=== PATIENT | male | born 1965 | race Caucasian/White ===

== ENCOUNTER 2023-04-09 08:43 | Outpatient (OUT) | payer OTHER, SELFPAY ==
[2023-04-09 09:00] LABS: Basophils Percent Auto 0.4 % (0.2-2.0); Eosinophils Absolute Auto 0.2 10^3/uL (0.0-0.7); Eosinophils Percent Auto 3.2 % (0.9-7.0); Hematocrit 39.7 % (42.0-54.0); Hemoglobin 13.9 g/dL (14.0-18.0); Immature Granulocytes Abs Auto 0.01 10^3/uL (0.00-0.03); Immature Granulocytes Pct Auto 0.2 % (0.0-0.5); Mean Corpuscular Hemoglobin 31.2 pg (25.9-34.0); Mean Corpuscular Volume 89.2 fL (80.0-94.0); Monocytes Absolute Auto 0.5 10^3/uL (0.3-0.8); Monocytes Percent Auto 8.9 % (1.7-12.0); Neutrophils Absolute Auto 2.9 10^3/uL (1.4-6.5); Neutrophils Percent Auto 52.3 % (43.0-75.0); Platelet Count 215 10^3/uL (150-450); Red Blood Count 4.45 10^6/uL (4.70-6.10); Red Cell Distribution Width 12.5 % (11.0-15.0); White Blood Count 5.6 10^3/uL (4.0-11.0)
[2023-04-09 10:04] LABS: Alanine Aminotransferase 46 U/L (16-63); Albumin Globulin Ratio 1.1; Albumin Level 3.8 g/dL (3.4-5.0); Alkaline Phosphatase 56 U/L (46-116); Anion Gap 11.6; Aspartate Amino Transferase 20 U/L (15-37); BUN Creatinine Ratio 15.8; Bilirubin Total 0.6 mg/dL (0.2-1.0); Calcium 8.7 mg/dL (8.5-10.1); Carbon Dioxide 28.2 mmol/L (21.0-32.0); Chloride 105 mmol/L (98-107); Chol HDL Ratio 4.7; Cholesterol 182 mg/dL (<=200); Estimated GFR (African America >60 (>=60); Estimated GFR (Non-African Ame >60 (>=60); Globulin 3.4 g/dL; Glucose 109 mg/dL (74-106); HDL Cholesterol 39 mg/dL (40-60); Potassium 3.8 mmol/L (3.5-5.1); Sodium 141 mmol/L (136-145); Total Protein 7.2 g/dL (6.4-8.2); Triglycerides 159 mg/dL (<=150); VLDL CHOLESTEROL 31.8 mg/dL
[2023-04-09 10:25] LABS: Prostate Specific Antigen Scrn 0.46 ng/mL (<=4.00)
== END 2023-04-09 08:44 | disposition home or self-care (01) ==
PROVIDERS: PCP Internal Medicine; Visit Provider Internal Medicine
DX: Z00.00 Encounter for general adult medical examination without abnormal findings (principal); Z12.5 Encounter for screening for malignant neoplasm of prostate
CPT/HCPCS: 36415; 80053; 80061; 85025; G0103

== ENCOUNTER 2023-07-24 09:42 | Outpatient (OUT) | payer OTHER, SELFPAY ==
[2023-07-24 10:17] LABS: Basophils Percent Auto 0.4 % (0.2-2.0); Eosinophils Absolute Auto 0.1 10^3/uL (0.0-0.7); Eosinophils Percent Auto 1.9 % (0.9-7.0); Hematocrit 41.3 % (42.0-54.0); Hemoglobin 14.2 g/dL (14.0-18.0); Immature Granulocytes Abs Auto 0.03 10^3/uL (0.00-0.03); Immature Granulocytes Pct Auto 0.4 % (0.0-0.5); Lymphocytes Absolute Auto 2.2 10^3/uL (1.2-3.8); Lymphocytes Percent Auto 29.6 % (20.5-60.0); Mean Corpuscular HGB Conc 34.4 g/dL (29.9-35.2); Mean Corpuscular Hemoglobin 30.8 pg (25.9-34.0); Mean Corpuscular Volume 89.6 fL (80.0-94.0); Mean Platelet Volume 9.3 fL (9.5-13.5); Monocytes Absolute Auto 0.8 10^3/uL (0.3-0.8); Monocytes Percent Auto 10.6 % (1.7-12.0); Neutrophils Absolute Auto 4.2 10^3/uL (1.4-6.5); Neutrophils Percent Auto 57.1 % (43.0-75.0); Platelet Count 219 10^3/uL (150-450); Red Blood Count 4.61 10^6/uL (4.70-6.10); Red Cell Distribution Width 12.4 % (11.0-15.0); White Blood Count 7.4 10^3/uL (4.0-11.0)
[2023-07-24 10:33] LABS: Anion Gap 11.2; BUN Creatinine Ratio 16.5; Calcium 8.8 mg/dL (8.5-10.1); Carbon Dioxide 30.5 mmol/L (21.0-32.0); Chloride 102 mmol/L (98-107); Estimated GFR (African America >60 (>=60); Estimated GFR (Non-African Ame >60 (>=60); Glucose 101 mg/dL (74-106); Potassium 3.7 mmol/L (3.5-5.1); Sodium 140 mmol/L (136-145)
== END 2023-07-24 09:43 | disposition home or self-care (01) ==
LOC: LAB 09:44
PROVIDERS: PCP Internal Medicine; Visit Provider Internal Medicine
DX: D64.9 Anemia, unspecified (principal); I10 Essential (primary) hypertension
CPT/HCPCS: 36415; 80048; 85025

== ENCOUNTER 2024-02-13 11:01 | Emergency (ER) | payer OTHER, SELFPAY ==
[2024-02-13 11:05] VITALS: BP 161/85; PULSE 61; TEMP 36.9; O2SAT 95; BMI 31.7
--- OUTSIDE RECORDS SUMMARY | 2024-02-13 11:06 | XMS_ITS ---
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 Name Role Phone DEMETRI, DR WILSON Attending Unavailable BALL, DR WILSON Admitting Unavailable BALL, DR WILSON Primary Care Unavailable BALL, DR WILSON Consulting Unavailable BALL, DR WILSON Admitting Unavailable BALL, DR WILSON Primary Care Unavailable BALL, DR WILSON Consulting Unavailable BALL, DR WILSON Attending Unavailable Ball, Jomar Unavailable CLARENCE SHARMA Unavailable Allergies Allergy Classification Reported Allergen(s) Allergy Type Date of Onset Reaction(s) Facility (6 sources) patient allergy list reviewed by nurse or physicia Propensity to adverse reactions 5 Comment:Done [facility] Other Encounters Encounter Date Encounter Type Care Provider Facility Start: 01-21-2024 End: 01-21-2024 ambulatory CLARENCE SHARMA Not Available Start: 09-16-2023 End: 09-16-2023 ambulatory Jomar Mosquera Other [facility] Other Start: 09-16-2023 Office outpatient vi sit 15 minutes Jomar Demetri [facility] Start: 07-24-2023 End: 07-24-2023 ambulatory Jomar Demetri Other [facility] Other Start: 07-24-2023 Telephone encounter Jomar Mosquera [facility] Start: 07-23-2023 End: 07-23-2023 ambulatory Jomar Ball Other [facility] Other Start: 07-23-2023 Telephone encounter Jomar Mosquera [facility] Start: 06-24-2023 End: 06-24-2023 ambulatory Jomar Ball Other [facility] Other Start: 06-24-2023 Nursing evaluation o f patient and report Jomar Mosquera [facility] Start: 06-24-2023 Telephone encounter Jomar Mosquera [facility] Start: 06-23-2023 End: 06-23-2023 ambulatory Jomar Mosquera Other [facility] Other Start: 06-23-2023 Telephone encounter Jomar [facility] Start: 04-08-2023 End: 04-08-2023 ambulatory Jomar Mosquera Other [facility] Other Start: 04-08-2023 Encounter for genera l adult medical examination without abnormal findings Jomar Mosquera [facility] Start: 04-08-2023 Periodic preventive med est patient 40-64yrs Jomar Mosquera [facility] Start: 10-28-2022 End: 10-28-2022 ambulatory Jomar Mosquera Other [facility] Other Start: 10-28-2022 Office outpatient vi sit 15 minutes Jomar Mosquera [facility] Start: 04-01-2022 Encounter for genera l adult medical examination without abnormal findings DR JOMAR MOSQUERA [facility] Start: 03-27-2022 Adult health examination Jomar Mosquera Other [facility] Other Start: 03-27-2022 End: 03-28-[address] JOMAR MOSQUERA Facility:[facility] Start: 03-27-2022 End: 03-28-2022 Encounter for general adult medical examination without abnormal findings DR JOMAR MOSQUERA Facility:[facility] Start: 06-07-2021 End: 06-07-[address] JOMAR MOSQUERA Facility:[facility] Immunizations Immunization Date Immunization Notes Care Provider Fa cility 06-24-2023 influenza, injectabl e, quadrivalent, preservative free Jomar Mosquera Other [facility] Other 07-16-2022 influenza virus vaccine, split virus (incl. purified surface antigen) Jomar Mosquera Other [facility] Other 07-03-2021 influenza virus vaccine, split virus (incl. purified surface antigen) Jomar Mosquera Other [facility] Other 07-13-2020 influenza virus vaccine, split virus (incl. purified surface antigen) Jomar Mosquera Other [facility] Other 07-05-2019 influenza virus vaccine, split virus (incl. purified surface antigen) Jomar Mosquera Other [facility] Other 07-20-2017 influenza virus vaccine, split virus (incl. purified surface antigen) Jomar Mosquera Other [facility] Other Medications Current Medications Medication Drug Class(es) Dates Sig (Normalized) Sig (Original) ALPRAZolam 1 mg oral tablet (8 sources) Benzodiazepine Start: 08-26-2023 take 1 tablet by mouth twice daily ALPRAZolam 1 mg TAKE ONE TABLET BY MOUTH TWICE A DAY for 30 Aug, Active Start: 02-06-2023 take 1 tablet by wendy th twice daily ALPRAZolam 1 mg TAKE ONE TABLET BY MOUTH TWICE A DAY January, Active Start: 10-13-2022 take 1 tablet by [facility] twice daily ALPRAZolam 1 mg TAKE ONE TABLET BY MOUTH TWICE A DAY Sep, Active amLODIPine 2.5 mg oral tablet (5 sources) Dihydropyridine Calcium Channel Paula Start: 06-24-2023 take 1 tablet by mouth every twenty-four hours amLODIPine Besylate 2.5 MG 1 tablet Orally Once a day for 30 days Jun, Active amLODIPine 5 mg / hydroCHLOROthiazide 12.5 mg / olmesartan medoxomil 40 mg oral tablet (1 source) Thiazide Diuretic, Dihydropyridine Calcium Channel Paula, Angiotensin 2 Receptor Paula Start: 06-23-2023 take 1 tablet by mouth every twenty-four hours Olmesartan-amLO DIPine-HCTZ 40-5-12.5 MG 1 tablet Orally Once a day for 30 days replaces losartan Jun, Active azithromycin 250 mg oral tablet (1 source) Macrolide Antimicrobial Start: 09-16-2023 Azithromycin 250 MG as directed Orally daily for 5 days Aug, Active carvedilol 6.25 mg oral tablet (8 sources) alpha-Adrenergic Paula, beta-Adrenergic Paula take 1 tablet by mouth twice daily Carvedilol 6.25 mg TAKE 1 (ONE) TABLET BY MOUTH TWO TIMES DAILY for 30 Active hydroCHLOROthiazide 12.5 mg / olmesartan medoxomil 20 mg oral tablet (5 sources) Thiazide Diuretic, Angiotensin 2 Receptor Paula Start: 06-24-2023 take 1 tablet by mouth every twenty-four hours Olmesartan Medoxomil-HCTZ 20-12.5 MG 1 tablet Orally Once a day for 30 days Jun, Active losartan potassium 100 mg oral tablet (2 sources) Angiotensin 2 Receptor Paula take 1 tablet by mouth every twenty-four hours Losartan Potassium 100 MG 1 tablet Orally Once a day Active Completed/Discontinued Medications Medication Drug Class(es) Dates Sig (Normalized) Sig (Original) tiZANidine 4 mg oral tablet (8 sources) Central alpha-2 Adrenergic Agonist take 1 tablet by mouth every eight hours tiZANidine HCl 4 MG 1 tablet as needed Orally Three times a day Not-Taking/PRN Payers Date Payer Category Payer Unknown [id number] 2.16.84 [id number] 1965 Unknown [id number] 2.16.84 [id number] 1965 Unknown [id number] 2.16.84 [id number] 1957 Unknown [id number] Problems Active Problems Problem Classification Problem Date Documented Da te Episodic/Chronic Acute bronchitis (7 sources) Acute bronchitis; Translations: [Acute bronchitis, unspecified] Onset: 12-25-2014 Episodic Anxiety disorders (16 sources) Generalized anxiety disorder; Translations: [Generalized anxiety disorder] Chronic Deficiency and other anemia (1 source) Anemia, unspecified Episodic Disorders of lipid metabolism (14 sources) Hypercholesterolemi a; Translations: [Pure hypercholesterolemi a, unspecified] Chronic Essential hypertension (20 sources) Essential hypertension; Translations: [Essential (primary) hypertension] Chronic Immunizations and screening for infectious disease (12 sources) Contact with and (suspected) exposure to other viral communicable diseases; Translations: [Vaccination given] Episodic Influenza (14 sources) Upper respiratory tract infection due to Influenza; Translations: [Influenza due to unidentified influenza virus with other respiratory manifestations] Episodic Other nutritional; endocrine; and metabolic disorders (17 sources) Body mass index 30+ - obesity; Translations: [Body mass index (BMI) 34.0-34.9, adult] Onset: 08-24-2017 Chronic Other nutritional; endocrine; and metabolic disorders (7 sources) Obesity caused by energy imbalance; Translations: [Other obesity due to excess calories] Chronic Other nutritional; endocrine; and metabolic disorders (1 source) Other obesity due to excess calories Chronic Other nutritional; endocrine; and metabolic disorders (1 source) Body mass index (BMI) 34.0-34.9, adult Chronic Other nutritional; endocrine; and metabolic disorders (5 sources) Morbid obesity; Translations: [Morbid (severe) obesity due to excess calories] Onset: 08-24-2017 Chronic Other nutritional; endocrine; and metabolic disorders (6 sources) Obesity; Translations: [Obesity, unspecified] Chronic Other nutritional; endocrine; and metabolic disorders (1 source) Morbid (severe) obesity due to excess calories; Translations: [Morbid (severe) obesity due to excess calories] Onset: 08-24-2017 Chronic Other upper respiratory infections (20 sources) Acute maxillary sinusitis; Translations: [Acute maxillary sinusitis, unspecified] Onset: 08-24-2017 Episodic Residual codes; unclassified (19 sources) Obstructive sleep apnea syndrome; Translations: [Obstructive sleep apnea (adult) (pediatric)] Onset: 08-24-2017 Chronic Residual codes; unclassified (3 sources) Obstructive sleep apnea (adult) (pediatric); Translations: [Obstructive sleep apnea (adult) (pediatric)] Chronic Screening and history of mental health and substance abuse codes (1 source) Encounter for screening for depression; Translations: [Encounter for screening for depression] Episodic Spondylosis; intervertebral disc disorders; other back problems (9 sources) Lumbar spondylosis; Translations: [Spondylosis without myelopathy or radiculopathy, lumbar region] Chronic Spondylosis; intervertebral disc disorders; other back problems (13 sources) Sciatica; Translations: [Lumbago with sciatica, unspecified side] Episodic Unclassified (3 sources) CONTACT W/AND (SUSP) EXPOS COVID-19; Translations: [CONTACT W/AND (SUSP) EXPOS COVID-19] Onset: 06-24-2021 Unclassified (1 source) Low back pain, unspecified; Translations: [Low back pain, unspecified] Past or Other Problems Problem Classification Problem Date Documented Da te Episodic/Chronic Bacterial infection; unspecified site (6 sources) Bacterial infectious disease; Translations: [Bacterial infection, unspecified, in conditions classified elsewhere and of unspecified site] Onset: 08-24-2017 Episodic Cardiac dysrhythmias (6 sources) Palpitations; Translations: [Palpitations] Onset: 02-13-2015 Episodic Neoplasms of unspecified nature or uncertain behavior (6 sources) Neoplasm of uncertain behavior of skin; Translations: [Neoplasm of uncertain behavior of skin] Onset: 03-29-2019 Episodic Other circulatory disease (6 sources) Elevated blood-pressure reading without diagnosis of hypertension; Translations: [Elevated blood-pressure reading, without diagnosis of hypertension] Resolved: 12-13-2020 Episodic Other screening for suspected conditions (not mental disorders or infectious disease) (3 sources) Encounter for screening for malignant neoplasm of prostate; Translations: [Encounter for screening for malignant neoplasm of colon] Onset: 03-29-2019 Episodic Other upper respiratory infections (6 sources) Chronic sinusitis; Translations: [Chronic sinusitis, unspecified] Resolved: 03-25-2022 Chronic Residual codes; unclassified (6 sources) Insomnia; Translations: [Insomnia, unspecified] Onset: 02-13-2015 Episodic Unclassified (1 source) CONTACT W/AND (SUSP) EXPOS COVID-19; Translations: [CONTACT W/AND (SUSP) EXPOS COVID-19] Onset: 06-07-2021 Unclassified (1 source) Body mass index 36.0-36.9, adult; Translations: [Body mass index 36.0-36.9, adult] Onset: 08-24-2017 Unclassified (1 source) Counseling for marital and partner problems, unspecified; Translations: [Counseling for marital and partner problems, unspecified] Onset: 07-25-2016 Unclassified (1 source) Routine general medical examination at health care facility; Translations: [Routine general medical examination at health care facility] Onset: 12-31-2017 Unclassified (1 source) Body mass index 31.0-31.9, adult; Translations: [Body mass index 31.0-31.9, adult] Onset: 08-24-2017 Viral infection (6 sources) Disease caused by 2019-nCoV; Translations: [COVID-19] Resolved: 03-25-2022 Procedures Date Procedure Procedure Detail Performing Clinician Start: 03-27-[address] BRIGHT IN [facility] Comment on above: Performed By: #### P [facility] #### [facility] [address] [place] [address] Dr. Marilee Farnsworth Start: 03-29-2019 Screening for malign ant neoplasm of colon Jomar Mosquera Other Start: 12-31-2017 General examination of patient Jomar Mosquera Other Start: 07-25-2016 Marital counseling Kristal Mosquera Other Depression screening Antolin Mosquera Other Results Test Name Value Interpretation Reference Range Facility CBC AUTO DIFFon 03-27-2022 BASO # 0.0 103/ul Normal 0.0-0.1 [facility] Comment on above: Performed By: #### C BC #### [facility] [address] [place] [address] Dr. Marilee Farnsworth Basophils/100 WBC (Bld) 0.6 % Normal 0.2-2.0 [facility] Comment on above: Performed By: #### C BC #### [facility] [address] [place] [address] Dr. Marilee Farnsworth EO # 0.2 103/ul Normal 0.0-0.7 [facility] Comment on above: Performed By: #### C BC #### [facility] [address] [place] [address] Dr. Marilee Farnsworth Eosinophils/100 WBC (Bld) 2.5 % Normal 0.9-7.0 [facility] Comment on above: Performed By: #### C BC #### [facility] [address] [place] [address] Dr. Marilee Farnsworth Erythrocyte distribution width (RBC) [Ratio] 12.5 % Normal 11.0-15.0 [facility] Comment on above: Performed By: #### C BC #### [facility] [address] [place] [address] Dr. Marilee Farnsworth Hematocrit (Bld) [Volume fraction] 41.5 % Critically low 42.0-54.0 [facility] Comment on above: Performed By: #### C BC #### [facility] [address] [place] [address] Dr. Marilee Farnsworth Hemoglobin (Bld) [Mass/Vol] 14.3 g/dL Normal 14.0-18.0 [facility] Comment on above: Performed By: #### C BC #### [facility] [address] [place] [address] Dr. Marilee Farnsworth IG # 0.04 10e3/ul Critically high 0.00-0.03 [facility] Comment on above: Performed By: #### C BC #### [facility] [address] [place] [address] Dr. Marilee Farnsworth IG % 0.6 % Critically high 0.0-0.5 [facility] Comment on above: Performed By: #### C BC #### [facility] [address] [place] [address] Dr. Marilee Farnsworth LYMPH # 1.8 103/ul Normal 1.2-3.8 [facility] Comment on above: Performed By: #### C BC #### [facility] [address] [place] [address] Dr. Marilee Farnsworth Lymphocytes/100 WBC (Bld) 24.6 % Normal 20.5-60.0 [facility] Comment on above: Performed By: #### C BC #### [facility] [address] [place] [address] Dr. Marilee Farnsworth MANUAL DIFF REQ NO Normal [facility] Comment on above: Performed By: #### C BC #### [facility] [address] [place] [address] Dr. Marilee Farnsworth MCH (RBC) [Entitic mass] 31.1 pg Normal 25.9-34.0 [facility] Comment on above: Performed By: #### C BC #### [facility] [address] [place] [address] Dr. Marilee Farnsworth MCHC (RBC) [Mass/Vol] 34.5 g/dL Normal 29.9-35.2 [facility] Comment on above: Performed By: #### C BC #### [facility] [address] [address] [address] Marilee Farnsworth MCV (RBC) [Entitic vol] 90.2 fL Normal 80.0-94.0 [facility] Comment on above: Performed By: #### C BC #### [facility] [address] [address] [address] Marilee Farnsworth MONO # 0.6 103/ul Normal 0.3-0.8 [facility] Comment on above: Performed By: #### C BC #### [facility] [address] [place] [address] Dr. Marilee Farnsworth Monocytes/100 WBC (Bld) 8.7 % Normal 1.7-12.0 [facility] Comment on above: Performed By: #### C BC #### [facility] [address] [place] [address] Dr. Marilee Farnsworth NEUT # 4.5 103/ul Normal 1.4-6.5 [facility] Comment on above: Performed By: #### C BC #### [facility] [address] [place] [address] Dr. Marilee Farnsworth Neutrophils/100 WBC (Bld) 63.0 % Normal 43.0-75.0 [facility] Comment on above: Performed By: #### C BC #### [facility] [address] [address] [address] Marilee Farnsworth Platelet mean volume (Bld) [Entitic vol] 9.3 fL Critically low 9.5-13.5 [facility] Comment on above: Performed By: #### C BC #### [facility] [address] [place] [address] Dr. Marilee Farnsworth PLT 225 103/ul Normal 150-450 [facility] Comment on above: Performed By: #### C BC #### [facility] [address] [place] [address] Dr. Marilee Farnsworth RBC 4.60 106/ul Critically low 4.70-6.10 [facility] Comment on above: Performed By: #### C BC #### [facility] [address] [address] [address] Marilee Farnsworth WBC 7.2 103/ul Normal 4.0-11.0 [facility] Comment on above: Performed By: #### C BC #### [facility] [address] [address] [address] Marilee Farnsworth LIPID PROFILEon 03-27-2022 CHOL-HDL RATIO NORM SEE BELOW Normal [facility] Comment on above: Result Comment: 3.3 - 4.4 LOW RISK 4.4 - 7.1 AVERAGE RISK 7.1 - 11.0 MODERATE RISK >11.0 HIGH RISK Performed By: #### T SH, CMP, LIPID #### [facility] [address] [address] [address] Marilee Farnsworth Cholesterol [Mass/Vol] 196 mg/dL Normal <=200 [facility] Comment on above: Performed By: #### T SH, CMP, LIPID #### [facility] [address] [address] [address] Marilee Farnsworth Cholesterol in HDL [Mass/Vol] 42 mg/dL Normal 40-60 [facility] Comment on above: Performed By: #### T SH, CMP, LIPID #### [facility] [address] [place] [address] Dr. Marilee Farnsworth Cholesterol in LDL [Mass/Vol] 110.0 mg/dL Normal [facility] Comment on above: Performed By: #### T SH, CMP, LIPID #### [facility] [address] [address] [address] Marilee Farnsworth Cholesterol.total/ Cholesterol in HDL [Mass ratio] 4.7 {ratio} Normal [facility] Comment on above: Performed By: #### T SH, CMP, LIPID #### [facility] [address] [place] [address] Dr. Marilee Farnsworth HDL NORMAL > or = 60 mg/dl - LOW CARDIOVASCULAR RISK <40 mg/dl - HIGH CARDIOVASCULAR RISK Normal [facility] Comment on above: Performed By: #### T SH, CMP, LIPID #### [facility] [address] [address] [address] Marilee Farnsworth LDL CALC NORMAL SEE BELOW Normal [facility] Comment on above: Result Comment: <100 mg/dl OPTIMAL 100 - 129 mg/dl NEAR OR ABOVE OPTIMAL 130 - 159 mg/dl BORDERLINE HIGH 160 - 189 mg/dl HIGH >190 mg/dl VERY HIGH Performed By: #### T SH, CMP, LIPID #### [facility] [address] [address] [address] Marilee Farnsworth Triglyceride [Mass/Vol] 220 mg/dL Critically high <=150 [facility] Comment on above: Performed By: #### T SH, CMP, LIPID #### [facility] [address] [address] [address] Marilee Farnsworth VLDL CALC 44.0 mg/dL Normal [facility] Comment on above: Performed By: #### T MAX CMP, LIPID #### [facility] [address] [address] [address] Marilee Farnsworth PROF 14(COMP METB)on 022 Albumin [Mass/Vol] 3.8 g/dL Normal 3.4-5.0 [facility] Comment on above: Performed By: #### T MAX CMP, LIPID #### [facility] [address] [place] [address] Dr. Marilee Farnsworth Albumin/Globulin [Mass ratio] 1.1 {ratio} Normal [facility] Comment on above: Performed By: #### T SH, CMP, LIPID #### [facility] [address] [place] [address] Dr. Marilee Farnsworth ALP [Catalytic activity/Vol] 49 U/L Normal 46-116 [facility] Comment on above: Performed By: #### T SH, CMP, LIPID #### [facility] [address] [place] [address] Dr. Marilee Farnsworth ALT [Catalytic activity/Vol] 53 U/L Normal 16-63 [facility] Comment on above: Performed By: #### T SH, CMP, LIPID #### [facility] [address] [address] [address] Marilee Farnsworth Anion gap [Moles/Vol] 10.0 mmol/L Normal [facility] Comment on above: Performed By: #### T SH, CMP, LIPID #### [facility] [address] [place] [address] Dr. Marilee Farnsworth AST [Catalytic activity/Vol] 23 U/L Normal 15-37 [facility] Comment on above: Performed By: #### T SH, CMP, LIPID #### [facility] [address] [place] [address] Dr. Marilee Farnsworth Bilirubin [Mass/Vol] 0.7 mg/dL Normal 0.2-1.0 [facility] Comment on above: Performed By: #### T SH, CMP, LIPID #### [facility] [address] [place] [address] Dr. Marilee Farnsworth Calcium [Mass/Vol] 9.1 mg/dL Normal 8.5-10.1 [facility] Comment on above: Performed By: #### T SH, CMP, LIPID #### [facility] [address] [place] [address] Dr. Marilee Farnsworth Chloride [Moles/Vol] 105 mmol/L Normal 98-107 [facility] Comment on above: Performed By: #### T SH, CMP, LIPID #### [facility] [address] [place] [address] Dr. Marilee Farnsworth CO2 [Moles/Vol] 30.7 mmol/L Normal 21.0-32.0 [facility] Comment on above: Performed By: #### T SH, CMP, LIPID #### [facility] [address] [place] [address] Dr. Marilee Farnsworth Creatinine [Mass/Vol] 1.07 mg/dL Normal 0.70-1.30 [facility] Comment on above: Performed By: #### T SH, CMP, LIPID #### [facility] [address] [place] [address] Dr. Marilee Farnsworth EGFR-AF MONTSERRATIAN >60 Normal >=60 [facility] Comment on above: Performed By: #### T SH, CMP, LIPID #### [facility] [address] [address] [address] Marilee Farnsworth EGFR-NON AF MONTSERRATIAN >60 Normal >=60 [facility] Comment on above: Performed By: #### T SH, CMP, LIPID #### [facility] [address] [address] [address] Marilee Farnsworth Globulin (S) [Mass/Vol] 3.4 g/dL Normal [facility] Comment on above: Performed By: #### T SH, CMP, LIPID #### [facility] [address] [address] [address] Marilee Farnsworth Glucose [Mass/Vol] 105 mg/dL Normal 74-106 [facility] Comment on above: Performed By: #### T MAX, CMP, LIPID #### [facility] [address] [place] [address] Dr. Marilee Farnsworth Potassium [Moles/Vol] 4.7 mmol/L Normal 3.5-5.1 [facility] Comment on above: Performed By: #### T MAX, CMP, LIPID #### [facility] [address] [place] [address] Dr. Marilee Farnsworth Protein [Mass/Vol] 7.2 g/dL Normal 6.4-8.2 [facility] Comment on above: Performed By: #### T MAX, CMP, LIPID #### [facility] [address] [place] [address] Dr. Marilee Farnsworth Sodium [Moles/Vol] 141 mmol/L Normal 136-145 [facility] Comment on above: Performed By: #### T SH, CMP, LIPID #### [facility] [address] [address] [address] Marilee Farnsworth Urea nitrogen [Mass/Vol] 15.0 mg/dL Normal 7.0-18.0 [facility] Comment on above: Performed By: #### T SH, CMP, LIPID #### [facility] [address] [place] [address] Dr. Marilee Farnsworth Urea nitrogen/Creatinin e [Mass ratio] 14.0 mg/mg Normal [facility] Comment on above: Performed By: #### T SH, CMP, LIPID #### [facility] [address] [place], [place] [address] Dr. Marilee Farnsworth TSHon 03-27-2022 TSH 2.606 uIU/mL Normal 0.358-3.740 [facility] Comment on above: Performed By: #### T SH, CMP, LIPID #### [facility] [id number] Marilee Farnsworth Covid-19 PCR (CVDTB)on 05-22 SARS-CoV-2 (COVID-19) RNA NEIL+probe Ql (Unsp spec) Detected Critically abnormal NOT DETECTED [facility] Comment on above: Result Comment: This test is not yet approved or cleared by the [place] FDA. When there are no FDA-approved or cleared tests available, and other criteria are met, FDA can make tests available under an emergency access mechanism called an Emergency Use Authorization (EUA). The EUA for this test is supported by the Senior Consultant of Health and Human Service's (HHS's) declaration that circumstances exist to justify the emergency use of in vitro diagnostics for the detection and/or diagnosis of the virus that causes COVID-19. This EUA will remain in effect (meaning this test can be used) for the duration of the COVID-19 declaration justifying emergency of IVDs, unless it is terminated or revoked by FDA (after which the test may no longer be used). Performed By: #### C VDTBH #### [facility] [address] [address] [address] Marilee Farnsworth Social History Date Type Detail Facility Unknown if ever smoked [facility] Other Sex Assigned At Sex Assigned At Bir th [facility] Other Vital Signs Date Time Vital Sign Value Performing Clinician Facility 04-08-2023 14:30-0400 Body height 180.34 cm Jomar Mosquera Other [facility] Other 04-08-2023 14:30-0400 Body mass index (BMI) [Ratio] 34.11 kg/m2 Jomar Mosquera Other [facility] Other 04-08-2023 14:30-0400 Body weight 110.95 kg Jomar Ball Other [facility] Other 04-08-2023 14:30-0400 Diastolic blood pressure 93 mm[Hg] Jomar Ball Other [facility] Other 04-08-2023 14:30-0400 Respiratory rate 12 /min Jomar Ball Other [facility] Other 04-08-2023 14:30-0400 Systolic blood pressure 163 mm[Hg] Jomar Ball Other [facility] Other 10-28-2022 16:30-0500 Body height 180.34 cm Jomar Ball Other [facility] Other 10-28-2022 16:30-0500 Body mass index (BMI) [Ratio] 35.23 kg/m2 Jomar Ball Other [facility] Other 10-28-2022 16:30-0500 Body weight 114.58 kg Jomar Ball Other [facility] Other 10-28-2022 16:30-0500 Diastolic blood pressure 82 mm[Hg] Jomar Ball Other [facility] Other 10-28-2022 16:30-0500 Respiratory rate 12 /min Jomar Ball Other [facility] Other 10-28-2022 16:30-0500 Systolic blood pressure 122 mm[Hg] Jomar Ball Other [facility] Other Evaluation note 09-16-2023 Note Date & Type Note Facility 09-16-2023 Evaluation note Encounter Date Diagnosis Assessment Notes Aug, Acute bronchitis due to other specified organisms (ICD-10 - J20.8) Instructed to use Robitussin or Mucinex for cough, saline or Flonase NS for congestion, Tylenol for pain and fever. Aug, Primary hypertension (ICD-10 - I10) Aviod decongestants as they would aggravate his underlying HTN [facility] Other Evaluation note 07-23-2023 Note Date & Type Note Facility 07-23-2023 Evaluation note Encounter Date Diagnosis Assessment Notes Jul, Essential hypertension (ICD-10 - I10) Jul, Anemia, unspecified type (ICD-10 - D64.9) [facility] Other Evaluation note 06-24-2023 Note Date & Type Note Facility 06-24-2023 Evaluation note Encounter Date Diagnosis Assessment Notes Jun, Primary hypertension (ICD-10 - I10) [facility] Other Evaluation note 06-23-2023 Note Date & Type Note Facility 06-23-2023 Evaluation note Encounter Date Diagnosis Assessment Notes Jun, Primary hypertension (ICD-10 - I10) [facility] Other Evaluation note 04-08-2023 Note Date & Type Note Facility 04-08-2023 Evaluation note Encounter Date Diagnosis Assessment Notes Mar, Essential hypertension (ICD-10 - I10) This patient is instructed to consume a healthy, low-fat, low-salt diet. They are also encouraged to continue exercise to achieve/maintai n a normal BMI. Mar, Wellness examination (ICD-10 - Z00.00) Healthy diet and exercise. Reviewed age-appropriate preventive testing recommended. Mar, Obstructive sleep apnea (ICD-10 - G47.33) This patient is aware of the benefits associated with ANTONIO: With continued use, the patient reduces the risk for ME, CVA, HTN, cardiac dysrhythmias and sudden cardiac deaths.The patient is also aware of the association between ANTONIO and morning headaches, daytime somnolence, fatigue and obesity, which also has been improved with continued use.The patient is compliant with treatment, wearing the equipment every night for greater than 4 hours.The patient is instructed to continue use of the CPAP for ANTONIO treatment. Mar, JOBY (generalized anxiety disorder) (ICD-10 - F41.1) Healthy diet, exercise and keep active No change in medical therapy Mar, Other obesity due to excess calories (ICD-10 - E66.09) This patient has been instructed on a low-fat, high-fiber diet. They are instructed to reduce calories, portion sizes and snacks. It is recommended that they exercise for 30 minutes, 3-5 times weekly. Mar, Body mass index [BMI] 34.0-34.9, adult (ICD-10 - Z68.34) Mar, Screening PSA (prostate specific antigen) (ICD-10 - Z12.5) Yearly PSA and GERSON Mar, Other The patient is instructed to avoid bending, twisting or lifting. They are to use intermittent heat and ice as needed. They may schedule a massage or gentle manipulation. They may safely use Tylenol as needed. [facility] Other Evaluation note 10-28-2022 Note Date & Type Note Facility 10-28-2022 Evaluation note Encounter Date Diagnosis Assessment Notes Oct, Essential hypertension (ICD-10 - I10) This patient is instructed to consume a healthy, low-fat, low-salt diet. They are also encouraged to continue exercise to achieve/maintai n a normal BMI. Oct, Obstructive sleep apnea (ICD-10 - G47.33) This patient is aware of the benefits associated with ANTONIO: With continued use, the patient reduces the risk for ME, CVA, HTN, cardiac dysrhythmias and sudden cardiac deaths.The patient is also aware of the association between ANTONIO and morning headaches, daytime somnolence, fatigue and obesity, which also has been improved with continued use.The patient is compliant with treatment, wearing the equipment every night for greater than 4 hours.The patient is instructed to continue use of the CPAP for ANTONIO treatment. Oct, JOBY (generalized anxiety disorder) (ICD-10 - F41.1) Healthy diet, exercise and keep active. Oct, Lumbar spondylosis (ICD-10 - M47.816) The patient is instructed to avoid bending, twisting or lifting. They are to use intermittent heat and ice as needed. They may schedule a massage or gentle manipulation. They may safely use Tylenol as needed. [facility] Other Evaluation note Note Date & Type Note Facility Evaluation note No Information [facility] Other History general Narrative - Reported Note Date & Type Note Facility History general Narrative - Reported Type Medical History Hypercholesterolemia Medical History Obstructive sleep apnea Medical History Essential hypertension Medical History JOBY (generalized anxiety disorde r) Medical History Low back pain with radiation Medical History Acute non-recurrent maxillary si nusitis Medical History Influenza with respiratory sympt oms Surgical History APPENDECTOMY 2014 Hospitalization History SEE SURGICAL HX [facility] Other Summary Purpose Family History No Family History Records FoundNo Family History Records Found Advance Directives No Advanced Directives Records FoundNo Advanced Directives Records Found Additional Source Comments (unrecognized sect ion and content) No Status Records FoundNo Status Records Found INFORMATION SOURCE (unrecogn ized section and content) DATE CREATED AUTHOR 04/25/2022 [facility] DATE CREATED AUTHOR 'S ORGANIZ ATION 01/23/2024 [facility] EPIC REASON FOR VISIT (unrecogniz ed section and content) 6 month Follow upwellnessEle vated BPFLU ShotBP medicationRepeat LabsLab [phone] possible sinus infection FOR RECORDS PERTAINING TO PATIENTS WHO ARE OR HAVE BEEN ENROLLED IN A CHEMICAL DEPENDENCY/SUBSTANCEABUSE PROGRAM, SOME INFORMATION MAY BE OMITTED. This clinical summary was aggregated from multiple sources. Caution should be exercised in using it in the provision of clinical care. This summary normalizes information from multiple sources, and as a consequence, information in this document may materially change the coding, format and clinical context of patient data. In addition, data may be omitted in some cases. CLINICAL DECISIONS SHOULD BE BASED ON THE PRIMARY CLINICAL RECORDS. [employer] provides no warranty or guarantee of the accuracy or completeness of information in this document.
--- NOTE | 2024-02-13 11:23 | CT_ITS ---
The [address] [address] Patient Name: SOFIA CHARLES MRN: [id number] date: 1965 Sex: M Assigned Patient Location: ER Current Patient Location: Accession/Order Number: [id number] Exam Date: 02/13/2024 13:15 Report Date: 02/13/2024 14:25 At the request of: CHARLEY LAZO Procedure: CT lumbar spine wo con EXAM TYPE: CT lumbar spine wo con EXAM DATE AND TIME: 02/13/2024 1:15 PM EDT INDICATION: 58 years old Male with back pain COMPARISON: None. TECHNIQUE: CT imaging of the lumbar spine was obtained without contrast. Dose reduction techniques were achieved by using automated exposure control and/or adjustment of mA and/or kV according to patient size and/or use of iterative reconstruction technique. FINDINGS: 5 nonrib-bearing lumbar vertebrae. Normal lumbar lordosis without significant listhesis. Vertebral body heights are maintained. No acute displaced fracture is evident. Mild to moderate multilevel degenerative disc disease and facet arthropathy is present involving the lumbar spine. Broad-based disc bulge at the L2 4 L5 level results in [id number] spinal canal stenosis. At least moderate bilateral neural foraminal stenosis, right greater than left secondary to disc osteophyte complex and facet arthropathy. There is mild broad-based disc bulge with diffuse loss of normal intervertebral disc space at the L5-S1 level. Moderate to severe bilateral neural foraminal stenosis. The visualized bony pelvis is congruent with mild joint space narrowing the sacroiliac joints. Limited evaluation of the abdominopelvic viscera is unremarkable. CT/CT lumbar spine wo con IMPRESSION: Mild to moderate multilevel degenerative disc and facet arthropathy. No focal large central disc herniation or severe spinal canal stenosis identified. No acute fracture. Electronically authenticated by: KEENAN SCANLON Date: 02/13/2024 14:25
--- NOTE | 2024-02-13 11:23 | ED.BACK1 ---
HPI HPI - Back Pain/Injury General Chief Complaint: Back Pain/Injury Stated Complaint: BACK PAIN Time Seen by Provider: 02/13/24 11:11 Source: patient Mode of arrival: walk-in Limitations: no limitations History of Present Illness HPI Narrative: The patient have history of L4-L5 disc disease coming to the ER with a bilateral back pain with some radiation sometimes to his legs, that got worse over the last 5 days, the patient endorsed history of chronic back pain denying any incontinence of urine or stool or any weakness or numbness or tingling down his leg right now, the patient denies trauma or fall Related Data Home Medications ?Medication ?Instructions ?Recorded ?Confirmed alprazolam 1 mg tablet 1 mg PO DAILY 02/13/24 02/13/24 amlodipine 2.5 mg tablet 2.5 mg PO DAILY 02/13/24 02/13/24 carvedilol 6.25 mg tablet 6.25 mg PO BID 02/13/24 02/13/24 meloxicam 15 mg tablet 15 mg PO DAILY 02/13/24 02/13/24 methocarbamol 750 mg tablet 750 mg PO DAILY 02/13/24 02/13/24 olmesartan 20 1 tab PO DAILY 02/13/24 02/13/24 mg-hydrochlorothiazide 12.5 mg tablet Previous Rx's ?Medication ?Instructions ?Recorded meloxicam 15 mg tablet 15 mg PO DAILY PRN pain #10 tabs 02/13/24 orphenadrine citrate 100 mg 100 mg PO BID PRN muscle spasm #14 02/13/24 tablet,extended release tabs prednisone 20 mg tablet 40 mg (2 x 20 mg) PO DAILY 5 days 02/13/24 #10 tabs Allergies Allergy/AdvReac Type Severity Reaction Status Date / Time No Known Drug Allergies Allergy Verified 02/13/24 11:04 Opioid HPI Opioid Management Most Recent Opioid Data: Last ED Pain Assessment 02/13/24 11:10 Review of Systems ROS Status of ROS 10 or more systems reviewed and unremarkable except as noted in history and below Exam Narrative Exam Narrative: Nurses notes and vital signs reviewed and patient is not hypoxic. General: Well-appearing and in no apparent distress. Skin: Warm, dry, no pallor noted. No rash. Head: Normocephalic, atraumatic. Neck: Supple, non-tender. Eye: Pupils are equal, round and EOMI. No scleral icterus. Ears, Nose, Mouth, and Throat: TM are clear, no nasal mucosal hypertrophy. Oral mucosa is moist, no posterior oropharynx erythema, uvula is mid-line Cardiovascular: Regular Rate and Rhythm without murmur, gallop or rub. Respiratory: No accessory muscle use or respiratory distress. Lungs are clear to auscultation, no wheezing, rales or rhonchi Chest Wall: no tenderness Back: No midline thoracic, the patient have mid lumbar intervertebral line tenderness and right paraspinal muscle tenderness Musculoskeletal: normal ROM, no calf or popliteal tenderness, no lower extremity edema/swelling GI: Abdomen is soft, non-distended. Normal bowel sounds. No masses appreciated. No tenderness to palpation. No rebound, guarding, or rigidity noted. Neurological: A&O x4. No cranial nerve dysfunction observed. No truncal ataxia. Moves all extremities. Sensation intact. Psychiatric: Cooperative and interactive. Normal mood and affect. Constitutional Vital Signs, click to edit/add: Last Vital Signs Temp 98.5 F 02/13/24 11:05 Pulse 52 L 02/13/24 13:49 Resp 16 02/13/24 13:49 BP 124/70 02/13/24 13:49 Pulse Ox 98 02/13/24 13:49 O2 Del Method Room Air 02/13/24 11:05 Course Vital Signs Vital signs: Vital Signs Temperature 98.5 F 02/13/24 11:05 Pulse Rate 61 02/13/24 11:05 Respiratory Rate 16 02/13/24 11:05 Blood Pressure 161/85 H 02/13/24 11:05 Pulse Oximetry 95 02/13/24 11:05 Oxygen Delivery Method Room Air 02/13/24 11:05 Temperature 98.5 F 02/13/24 11:05 Pulse Rate 52 L 02/13/24 13:49 Respiratory Rate 16 02/13/24 13:49 Blood Pressure 124/70 02/13/24 13:49 Pulse Oximetry 98 02/13/24 13:49 Oxygen Delivery Method Room Air 02/13/24 11:05 MDM - Back Pain/Injury MDM Narrative Medical decision making narrative: CT lumbar spine showed no acute significant pathology Right now the patient was provided with a prescription of prednisone Mobic as well as Norflex He is to avoid using any most relaxant he have at home Avoid exertion Patient right now have no alarming symptoms he is to come back to the ER in case of new symptoms or concerns The patient is to follow up with primary care physician in next 2-3 days or to return to the emergency department should any of the signs or symptoms worsen or new symptoms develop. The patient agrees with the following Diagnosis and Treatment plan and the patient will be discharged home. Discharge Plan Discharge Stand Alone Forms: Portal Instructions Chief Complaint: Back Pain/Injury Clinical Impression: Strain of lumbar region Patient Disposition: Home, Self-Care Time of Disposition Decision: 15:17 Condition: Good Mode of Transportation: Private Vehicle Prescriptions / Home Meds: New meloxicam 15 mg tablet 15 mg PO DAILY PRN (Reason: pain ) Qty: 10 0RF orphenadrine citrate 100 mg tablet extended release 100 mg PO BID PRN (Reason: muscle spasm) Qty: 14 0RF prednisone 20 mg tablet 40 mg PO DAILY 5 Days Qty: 10 0RF No Action alprazolam 1 mg tablet 1 mg PO DAILY amlodipine 2.5 mg tablet 2.5 mg PO DAILY carvedilol 6.25 mg tablet 6.25 mg PO BID meloxicam 15 mg tablet 15 mg PO DAILY methocarbamol 750 mg tablet 750 mg PO DAILY olmesartan-hydrochlorothiazide 20-12.5 mg tablet 1 tab PO DAILY Print Language: Ghanaian Instructions: Low Back Strain (ED) Referrals: Jomar Calderon DO [Primary Care Provider] - 1 week Discharge Date/Time: 02/13/24 15:28
[2024-02-13] MEDS: KETOROLAC TROMETHAMINE 30 MG/ML VIAL IM (11:43)
[2024-02-13] MEDS: ORPHENADRINE 60 MG/ 2 ML VIAL IM (11:43)
[2024-02-13] MEDS: PREDNISONE 20 MG TABLET 40 MG PO (11:44)
[2024-02-13] MEDS: FAMOTIDINE 20 MG TABLET PO (11:44)
[2024-02-13 13:49] VITALS: BP 124/70; PULSE 52; O2SAT 98
== END 2024-02-13 15:28 | disposition home or self-care (01) ==
PROVIDERS: Emergency Provider Emergency Medicine; PCP Internal Medicine
DX: S39.012A Strain of muscle, fascia and tendon of lower back, initial encounter (principal)
CPT/HCPCS: 72131; 96372; 99285

== ENCOUNTER 2024-04-01 12:49 | Outpatient (RCR) | payer OTHER, SELFPAY | END 2024-04-16 15:48 | disposition home or self-care (01) | LOC: PT 12:49 | PROVIDERS: PCP Internal Medicine; Visit Provider Internal Medicine | DX: M47.816 Spondylosis without myelopathy or radiculopathy, lumbar region (principal); M54.50 Low back pain, unspecified | CPT/HCPCS: 97110; 97112; 97140; 97162 ==

== ENCOUNTER 2024-04-15 08:34 | Outpatient (OUT) | payer OTHER, SELFPAY ==
--- OUTSIDE RECORDS SUMMARY | 2024-04-15 08:42 | XMS_ITS | CCD ---
Author Organization [facility] Care Team Providers Care Senior Mobile Solutions Architect Name Role Phone KVNG, DR WILSON Attending Unavailable KVNG, DR WILSON Admitting Unavailable KVNG, DR WILSON Primary Care Unavailable KVNG, DR WILSON Consulting Unavailable KVNG, DR WILSON Admitting Unavailable KVNG, DR WILSON Primary Care Unavailable KVNG, DR WILSON Consulting Unavailable KVNG, DR WILSON Attending Unavailable Kvng, Jomar Unavailable CLARENCE SHARMA Attending Unavailable Allergies Allergy Classification Reported Allergen(s) Allergy Type Date of Onset Reaction(s) Facility (6 sources) patient allergy list reviewed by nurse or physicia Propensity to adverse reactions 5 Comment:Done [employer] Other Medications Current Medications Medication Drug Class(es) [...] Active Start: 10-13-2022 take 1 tablet by wendy th twice [...] needed Orally Three times a day Not-Taking/PRN Problems Active Problems Problem Classification Problem Date [...] caused by 2019-nCoV; Translations: [COVID-19] Resolved: 03-25-2022 Results Test Name Value Interpretation Reference Range Facility CBC AUTO DIFFon 03-27-2022 BASO # 0.0 103/ul Normal 0.0-0.1 [facility] Comment on above: Performed By: #### C BC #### [facility] [address] [address] [address] Marilee Farnsworth Basophils/100 WBC (Bld) 0.6 % Normal 0.2-2.0 [facility] Comment on above: Performed By: #### C BC #### [facility] [address] [place] [address] Dr. Marilee Farnsworth EO # 0.2 103/ul Normal 0.0-0.7 [facility] Comment on above: Performed By: #### C BC #### [facility] [address] [place] [address] Dr. Marilee Farnsworth Eosinophils/100 WBC (Bld) 2.5 % Normal 0.9-7.0 [facility] Comment on above: Performed By: #### C BC #### [facility] [address] [place] [address] Dr. Marilee Farnsworth Erythrocyte distribution width (RBC) [Ratio] 12.5 % Normal 11.0-15.0 [facility] Comment on above: Performed By: #### C BC #### [facility] [address] [place] [address] Dr. Marilee Farnsworth Hematocrit (Bld) [Volume fraction] 41.5 % Critically low 42.0-54.0 [facility] Comment on above: Performed By: #### C BC #### [facility] [address] [place] [address] Dr. Marilee Farnsworth Hemoglobin (Bld) [Mass/Vol] 14.3 g/dL Normal 14.0-18.0 [facility] Comment on above: Performed By: #### C BC #### [facility] [address] [place] [address] Dr. Marilee Farnsworth IG # 0.04 10e3/ul Critically high 0.00-0.03 [facility] Comment on above: Performed By: #### C BC #### [facility] [address] [place] [address] Dr. Marilee Farnsworth IG % 0.6 % Critically high 0.0-0.5 [facility] Comment on above: Performed By: #### C BC #### [facility] [address] [place] [address] Dr. Marilee Farnsworth LYMPH # 1.8 103/ul Normal 1.2-3.8 [facility] Comment on above: Performed By: #### C BC #### [facility] [address] [place] [address] Dr. Marilee Farnsworth Lymphocytes/100 WBC (Bld) 24.6 % Normal 20.5-60.0 [facility] Comment on above: Performed By: #### C BC #### [facility] [address] [place] [address] Dr. Marilee Farnsworth MANUAL DIFF REQ NO Normal [facility] Comment on above: Performed By: #### C BC #### [facility] [address] [place] [address] Dr. Marilee Farnsworth MCH (RBC) [Entitic mass] 31.1 pg Normal 25.9-34.0 [facility] Comment on above: Performed By: #### C BC #### [facility] [address] [place] [address] Dr. Marilee Farnsworth MCHC (RBC) [Mass/Vol] 34.5 g/dL Normal 29.9-35.2 [facility] Comment on above: Performed By: #### C BC #### [facility] [address] [place] [address] Dr. Marilee Farnsworth MCV (RBC) [Entitic vol] 90.2 fL Normal 80.0-94.0 [facility] Comment on above: Performed By: #### C BC #### [facility] [address] [place] [address] Dr. Marilee Farnsworth MONO # 0.6 103/ul Normal 0.3-0.8 [facility] Comment on above: Performed By: #### C BC #### [facility] [address] [place] [address] Dr. Marilee Farnsworth Monocytes/100 WBC (Bld) 8.7 % Normal 1.7-12.0 [facility] Comment on above: Performed By: #### C BC #### [facility] [address] [place] [address] Dr. Marilee Farnsworth NEUT # 4.5 103/ul Normal 1.4-6.5 [facility] Comment on above: Performed By: #### C BC #### [facility] [address] [place] [address] Dr. Marilee Farnsworth Neutrophils/100 WBC (Bld) 63.0 % Normal 43.0-75.0 [facility] Comment on above: Performed By: #### C BC #### [facility] [address] [place] [address] Dr. Marilee Farnsworth Platelet mean volume (Bld) [Entitic vol] 9.3 fL Critically low 9.5-13.5 [facility] Comment on above: Performed By: #### C BC #### [facility] [address] [place] [address] Dr. Marilee Farnsworth PLT 225 103/ul Normal 150-450 [facility] Comment on above: Performed By: #### C BC #### [facility] [address] [place] [address] Dr. Marilee Farnsworth RBC 4.60 106/ul Critically low 4.70-6.10 [facility] Comment on above: Performed By: #### C BC #### [facility] [address] [place] [address] Dr. Marilee Farnsworth WBC 7.2 103/ul Normal 4.0-11.0 [facility] Comment on above: Performed By: #### C BC #### [facility] [address] [place] [address] Dr. Marilee Farnsworth LIPID PROFILEon 03-27-2022 CHOL-HDL RATIO NORM SEE BELOW Normal [facility] Comment on above: Result Comment: 3.3 - 4.4 LOW RISK 4.4 - 7.1 AVERAGE RISK 7.1 - 11.0 MODERATE RISK >11.0 HIGH RISK Performed By: #### T SH, CMP, LIPID #### [facility] [address] [address] [address] Marilee Farnsworth Cholesterol [Mass/Vol] 196 mg/dL Normal <=200 [facility] Comment on above: Performed By: #### T SH, CMP, LIPID #### [facility] [address] [address] [address] Marilee Farnsworth Cholesterol in HDL [Mass/Vol] 42 mg/dL Normal 40-60 [facility] Comment on above: Performed By: #### T SH, CMP, LIPID #### [facility] [address] [address] [address] Marilee Farnsworth Cholesterol in LDL [Mass/Vol] 110.0 mg/dL Normal [facility] Comment on above: Performed By: #### T SH, CMP, LIPID #### [facility] [address] [address] [address] Marilee Farnsworth Cholesterol.total/ Cholesterol in HDL [Mass ratio] 4.7 {ratio} Normal [facility] Comment on above: Performed By: #### T SH, CMP, LIPID #### [facility] [address] [address] [address] Marilee Farnsworth HDL NORMAL > or = 60 mg/dl - LOW CARDIOVASCULAR RISK <40 mg/dl - HIGH CARDIOVASCULAR RISK Normal [facility] Comment on above: Performed By: #### T SH, CMP, LIPID #### [facility] [address] [address] [address] Marilee Farnsworth LDL CALC NORMAL SEE BELOW Normal [facility] Comment on above: Result Comment: <100 mg/dl OPTIMAL 100 - 129 mg/dl NEAR OR ABOVE OPTIMAL 130 - 159 mg/dl BORDERLINE HIGH 160 - 189 mg/dl HIGH >190 mg/dl VERY HIGH Performed By: #### T SH, CMP, LIPID #### [facility] [address] [address] [address] Marilee Farnsworth Triglyceride [Mass/Vol] 220 mg/dL Critically high <=150 [facility] Comment on above: Performed By: #### T SH, CMP, LIPID #### [facility] [address] [address] [address] Marilee Farnsworth VLDL CALC 44.0 mg/dL Normal [facility] Comment on above: Performed By: #### T SH, CMP, LIPID #### [facility] [address] [address] [address] Marilee Farnsworth PROF 14(COMP METB)on 022 Albumin [Mass/Vol] 3.8 g/dL Normal 3.4-5.0 [facility] Comment on above: Performed By: #### T SH, CMP, LIPID #### [facility] [address] [address] [address] Marilee Farnsworth Albumin/Globulin [Mass ratio] 1.1 {ratio} Normal [facility] Comment on above: Performed By: #### T SH, CMP, LIPID #### [facility] [address] [place] [address] Dr. Marilee Farnsworth ALP [Catalytic activity/Vol] 49 U/L Normal 46-116 [facility] Comment on above: Performed By: #### T SH, CMP, LIPID #### [facility] [address] [place] [address] Dr. Marilee Farnsworth ALT [Catalytic activity/Vol] 53 U/L Normal 16-63 [facility] Comment on above: Performed By: #### T SH, CMP, LIPID #### [facility] [address] [place] [address] Dr. Marilee Farnsworth Anion gap [Moles/Vol] 10.0 mmol/L Normal [facility] Comment on above: Performed By: #### T SH, CMP, LIPID #### [facility] [address] [address] [address] Marilee Farnsworth AST [Catalytic activity/Vol] 23 U/L Normal 15-37 [facility] Comment on above: Performed By: #### T SH, CMP, LIPID #### [facility] [address] [address] [address] Marilee Farnsworth Bilirubin [Mass/Vol] 0.7 mg/dL Normal 0.2-1.0 [facility] Comment on above: Performed By: #### T SH, CMP, LIPID #### [facility] [address] [address] [address] Marilee Farnsworth Calcium [Mass/Vol] 9.1 mg/dL Normal 8.5-10.1 [facility] Comment on above: Performed By: #### T SH, CMP, LIPID #### [facility] [address] [address] [address] Marilee Farnsworth Chloride [Moles/Vol] 105 mmol/L Normal 98-107 [facility] Comment on above: Performed By: #### T SH, CMP, LIPID #### [facility] [address] [address] [address] Marilee Farnsworth CO2 [Moles/Vol] 30.7 mmol/L Normal 21.0-32.0 [facility] Comment on above: Performed By: #### T SH, CMP, LIPID #### [facility] [address] [place] [address] Dr. Marilee Farnsworth Creatinine [Mass/Vol] 1.07 mg/dL Normal 0.70-1.30 [facility] Comment on above: Performed By: #### T SH, CMP, LIPID #### [facility] [address] [place] [address] Dr. Marilee Farnsworth EGFR-AF TURKISH >60 Normal >=60 [facility] Comment on above: Performed By: #### T SH, CMP, LIPID #### [facility] [address] [place] [address] Dr. Marilee Farnsworth EGFR-NON AF TURKISH >60 Normal >=60 [facility] Comment on above: Performed By: #### T SH, CMP, LIPID #### [facility] [address] [place] [address] Dr. Marilee Farnsworth Globulin (S) [Mass/Vol] 3.4 g/dL Normal [facility] Comment on above: Performed By: #### T SH, CMP, LIPID #### [facility] [address] [place] [address] Dr. Marilee Farnsworth Glucose [Mass/Vol] 105 mg/dL Normal 74-106 [facility] Comment on above: Performed By: #### T SH, CMP, LIPID #### [facility] [address] [address] [address] Marilee Farnsworth Potassium [Moles/Vol] 4.7 mmol/L Normal 3.5-5.1 [facility] Comment on above: Performed By: #### T SH, CMP, LIPID #### [facility] [address] [address] [address] Marilee Farnsworth Protein [Mass/Vol] 7.2 g/dL Normal 6.4-8.2 [facility] Comment on above: Performed By: #### T SH, CMP, LIPID #### [facility] [address] [place] [address] Dr. Marilee Farnsworth Sodium [Moles/Vol] 141 mmol/L Normal 136-145 [facility] Comment on above: Performed By: #### T SH, CMP, LIPID #### [facility] [address] [place] [address] Dr. Marilee Farnsworth Urea nitrogen [Mass/Vol] 15.0 mg/dL Normal 7.0-18.0 [facility] Comment on above: Performed By: #### T SH, CMP, LIPID #### [facility] [address] [place] [address] Dr. Marilee Farnsworth Urea nitrogen/Creatinin e [Mass ratio] 14.0 mg/mg Normal [facility] Comment on above: Performed By: #### T SH, CMP, LIPID #### [facility] [address] [place] [address] Dr. Marilee Farnsworth TSHon 03-27-2022 TSH 2.606 uIU/mL Normal 0.358-3.[address] [facility] Comment on above: Performed By: #### T SH, CMP, LIPID #### [facility] [address] [place] [address] Dr. Marilee Farnsworth [facility]22 SARS-CoV-2 (COVID-19) RNA NEIL+probe Ql (Unsp spec) Detected Critically abnormal NOT DETECTED [facility] Comment on above: Result Comment: This test is not yet approved or cleared by the [place] FDA. When there are no FDA-approved or cleared tests available, and other criteria are met, FDA can make tests available under an emergency access mechanism called an Emergency Use Authorization (EUA). The EUA for this test is supported by the Inspector Subassemblies of Health and Human Service's (HHS's) declaration [...] longer be used). Performed By: #### C [facility] #### [facility] [address] [place] [address] Dr. Marilee Farnsworth Vital Signs Date Time Vital Sign Value Performing Clinician Facility 04-08-2023 14:30-0400 Body height 180.34 cm Jomar Bandcamp Other [employer] Other 04-08-2023 14:30-0400 Body mass index (BMI) [Ratio] 34.11 kg/m2 Jomar Bandcamp Other [employer] Other 04-08-2023 14:30-0400 Body weight 110.95 kg Jomar Ball Other [employer] Other 04-08-2023 14:30-0400 Diastolic blood pressure 93 mm[Hg] Jomar Ball Other [employer] Other 04-08-2023 14:30-0400 Respiratory rate 12 /min Jomar Bandcamp Other [employer] Other 04-08-2023 14:30-0400 Systolic blood pressure 163 mm[Hg] Jomar Ball Other [employer] Other 10-28-2022 16:30-0500 Body height 180.34 cm Jomar Bandcamp Other [employer] Other 10-28-2022 16:30-0500 Body mass index (BMI) [Ratio] 35.23 kg/m2 Jomar Ball Other [employer] Other 10-28-2022 16:30-0500 Body weight 114.58 kg Jomar Ball Other [employer] Other 10-28-2022 16:30-0500 Diastolic blood pressure 82 mm[Hg] Jomar Ball Other [employer] Other 10-28-2022 16:30-0500 Respiratory rate 12 /min Jomar Ball Other [employer] Other 10-28-2022 16:30-0500 Systolic blood pressure 122 mm[Hg] Jomar Ball Other [employer] Other Encounters Encounter Date Encounter Type Care Provider Facility Start: 01-21-2024 End: 01-21-2024 ambulatory CLARENCE MORTONANGELICA Not Available Start: 09-16-2023 End: 09-16-2023 ambulatory Jomar Ball Other [employer] Other Start: 09-16-2023 Office outpatient vi sit 15 minutes Jomar Ball [facility] Start: 07-24-2023 End: 07-24-2023 ambulatory Jomar Ball Other [employer] Other Start: 07-24-2023 Telephone encounter Jomar Ball [facility] Start: 07-23-2023 End: 07-23-2023 ambulatory Jomar Ball Other [employer] Other Start: 07-23-2023 Telephone encounter Jomar Ball [facility] Start: 06-24-2023 End: 06-24-2023 ambulatory Jomar Ball Other [employer] Other Start: 06-24-2023 Nursing evaluation o f patient and report Jomar Mosquera [facility] Start: 06-24-2023 Telephone encounter Jomar Mosquera [facility] Start: 06-23-2023 End: 06-23-2023 ambulatory Jomar Kvng Other [employer] Other Start: 06-23-2023 Telephone encounter Jomar SANCHEZ [facility] Start: 04-08-2023 End: 04-08-2023 ambulatory Jomar Mosquera Other [employer] Other Start: 04-08-2023 Encounter for genera l adult medical examination without abnormal findings Jomar Mosquera [facility] Start: 04-08-2023 Periodic preventive med est patient 40-64yrs Jomar Mosquera [facility] Start: 10-28-2022 End: 10-28-2022 ambulatory Jomar Kvng Other [employer] Other Start: 10-28-2022 Office outpatient vi sit 15 minutes Jomar Mosquera [facility] Start: 04-01-2022 Encounter for genera l adult medical examination without abnormal findings DR JOMAR MOSQUERA [facility] Start: 03-27-2022 Adult health examination Jomar K[facility] Other [employer] Other Start: 03-27-2022 End: 03-28-[address] JOMAR MOSQUERA Facility:[facility] Start: 03-27-2022 End: 03-28-2022 Encounter for general adult medical examination without abnormal findings DR JOMAR MOSQUERA Facility:[facility] Start: 06-07-2021 End: 06-07-[address] JOMAR MOSQUERA Facility:[facility] Procedures Date Procedure Procedure Detail Performing Clinician Start: 03-27-[address] BRIGHT IN [facility] Comment on above: Performed By: #### P [facility] #### [facility] [address] [place] [address] Dr. Marilee Farnsworth Start: 03-29-2019 Screening for malign ant neoplasm of colon Jomar Mosquera Other Start: 12-31-2017 General examination of patient Jomar Mosquera Other Start: 07-25-2016 Marital counseling Kristal Mosquera Other Depression screening Antolin Mosquera Other Immunizations Immunization Date Immunization Notes Care Provider Lauren reeder 06-24-2023 influenza, injectabl e, quadrivalent, preservative free Jomar Mosquera Other [employer] Other 07-16-2022 influenza virus vaccine, split virus (incl. purified surface antigen) Jomar Mosquera Other [employer] Other 07-03-2021 influenza virus vaccine, split virus (incl. purified surface antigen) Jomar Mosquera Other [employer] Other 07-13-2020 influenza virus vaccine, split virus (incl. purified surface antigen) Jomar Mosquera Other [employer] Other 07-05-2019 influenza virus vaccine, split virus (incl. purified surface antigen) Jomar Mosquera Other [employer] Other 07-20-2017 influenza virus vaccine, split virus (incl. purified surface antigen) Jomar Mosquera Other [employer] Other Payers Date Payer Category Payer Unknown [id number] [id number] [id number] 1967 Unknown [id number] [id number] [id number] 1967 Unknown [id number] [id number] 1959 Unknown [id number] Social History Date Type Detail Facility Unknown if ever smoked [employer] Other Sex Assigned At Sex Assigned At Bir th [employer] Other Evaluation note 09-16-2023 Note Date & Type Note Facility 09-16-2023 Evaluation note Encounter Date Diagnosis Assessment Notes Aug, Acute bronchitis due to other specified organisms (ICD-10 - J20.8) Instructed to use Robitussin or Mucinex for cough, saline or Flonase NS for congestion, Tylenol for pain and fever. Aug, Primary hypertension (ICD-10 - I10) Aviod decongestants as they would aggravate his underlying HTN [employer] Other Evaluation note 07-23-2023 Note Date & Type Note Facility 07-23-2023 Evaluation note Encounter Date Diagnosis Assessment Notes Jul, Essential hypertension (ICD-10 - I10) Jul, Anemia, unspecified type (ICD-10 - D64.9) [employer] Other Evaluation note 06-24-2023 Note Date & Type Note Facility 06-24-2023 Evaluation note Encounter Date Diagnosis Assessment Notes Jun, Primary hypertension (ICD-10 - I10) [employer] Other Evaluation note 06-23-2023 Note Date & Type Note Facility 06-23-2023 Evaluation note Encounter Date Diagnosis Assessment Notes Jun, Primary hypertension (ICD-10 - I10) [employer] Other Evaluation note 04-08-2023 Note Date & [...] use, the patient reduces the risk for WI, CVA, HTN, cardiac dysrhythmias and sudden cardiac [...] They may safely use Tylenol as needed. [employer] Other Evaluation note 10-28-2022 Note Date & [...] use, the patient reduces the risk for WI, CVA, HTN, cardiac dysrhythmias and sudden cardiac deaths.The patient is also aware of the association between ANTONIO and morning headaches, daytime somnolence, fatigue and obesity, which also has been improved with continued use.The patient is compliant with treatment, wearing the equipment every night for greater than 4 hours.The patient is instructed to continue use of the CPAP for ANOTNIO treatment. Oct, JOBY (generalized anxiety disorder) (ICD-10 - F41.1) Healthy diet, exercise and keep active. Oct, Lumbar spondylosis (ICD-10 - M47.816) The patient is instructed to avoid bending, twisting or lifting. They are to use intermittent heat and ice as needed. They may schedule a massage or gentle manipulation. They may safely use Tylenol as needed. [employer] Other Evaluation note Note Date & Type Note Facility Evaluation note No Information [facility] Other History general Narrative - Reported Note [...] APPENDECTOMY 2014 Hospitalization History SEE SURGICAL HX [employer] Other Summary Purpose Family History No Family History Records FoundNo Family History Records Found Advance Directives No Advanced Directives Records FoundNo Advanced Directives Records Found Additional Source Comments (unrecognized sect ion and content) No Status Records FoundNo Status Records Found INFORMATION SOURCE (unrecogn ized section and content) DATE CREATED AUTHOR 04/25/2022 [facility] DATE CREATED AUTHOR AUTHOR'S ORGANIZ ATION 01/23/2024 [facility] EPIC REASON FOR VISIT (unrecogniz ed section and content) 6 month Follow upwellnessEle vated BPFLU ShotBP medicationRepeat LabsLab [id number] possible sinus infection FOR RECORDS PERTAINING TO [...] BE BASED ON THE PRIMARY CLINICAL RECORDS. H2020. provides no warranty or guarantee of the accuracy or completeness of information in this document.
[2024-04-15 09:14] LABS: Bilirubin Urine NEGATIVE (NEGATIVE); Blood Urine TRACE-I (NEGATIVE); Clarity Urine CLEAR (CLEAR); Color Urine LT. YELLOW (YELLOW); Glucose Urine UA NEGATIVE (NEGATIVE); Ketones Urine NEGATIVE (NEGATIVE); Leukocyte Esterase Urine NEGATIVE (NEGATIVE); Nitrite Urine NEGATIVE (NEGATIVE); Protein Urine NEGATIVE (NEG/TRACE); Specific Gravity Urine <=1.005 (1.005-1.025); Urobilinogen Urine 0.2 EU/dL (0.2-1.0)
[2024-04-15 09:15] LABS: Basophils Percent Auto 0.3 % (0.2-2.0); Eosinophils Absolute Auto 0.1 10^3/uL (0.0-0.7); Eosinophils Percent Auto 2.1 % (0.9-7.0); Hematocrit 38.6 % (42.0-54.0); Hemoglobin 13.4 g/dL (14.0-18.0); Immature Granulocytes Abs Auto 0.06 10^3/uL (0.00-0.03); Mean Corpuscular HGB Conc 34.7 g/dL (29.9-35.2); Mean Corpuscular Hemoglobin 31.2 pg (25.9-34.0); Mean Corpuscular Volume 89.8 fL (80.0-94.0); Mean Platelet Volume 9.1 fL (9.5-13.5); Monocytes Absolute Auto 0.7 10^3/uL (0.3-0.8); Monocytes Percent Auto 10.5 % (1.7-12.0); Neutrophils Absolute Auto 3.4 10^3/uL (1.4-6.5); Neutrophils Percent Auto 54.1 % (43.0-75.0); Platelet Count 276 10^3/uL (150-450); Red Cell Distribution Width 12.4 % (11.0-15.0); White Blood Count 6.3 10^3/uL (4.0-11.0)
[2024-04-15 09:37] LABS: Alanine Aminotransferase 50 U/L (16-63); Albumin Globulin Ratio 1.1; Albumin Level 3.6 g/dL (3.4-5.0); Alkaline Phosphatase 50 U/L (46-116); Anion Gap 12.4; Aspartate Amino Transferase 22 U/L (15-37); BUN Creatinine Ratio 12.5; Bilirubin Total 0.5 mg/dL (0.2-1.0); Calcium 9.2 mg/dL (8.5-10.1); Carbon Dioxide 29.2 mmol/L (21.0-32.0); Chloride 103 mmol/L (98-107); Chol HDL Ratio 5.6; Cholesterol 203 mg/dL (<=200); Estimated GFR (African America >60 (>=60); Estimated GFR (Non-African Ame >60 (>=60); Globulin 3.3 g/dL; Glucose 108 mg/dL (74-106); HDL Cholesterol 36 mg/dL (40-60); Potassium 3.6 mmol/L (3.5-5.1); Sodium 141 mmol/L (136-145); Total Protein 6.9 g/dL (6.4-8.2); Triglycerides 173 mg/dL (<=150); VLDL CHOLESTEROL 34.6 mg/dL
[2024-04-15 10:40] LABS: RBC Urine NONE SEEN #/HPF (0-2); WBC Urine 0-2 #/HPF (NONE SEEN)
[2024-04-15 10:41] LABS: Bacteria Urine NONE SEEN #/HPF (NONE SEEN); Cast Seen? NONE SEEN #/LPF (NONE SEEN); Crystals Seen? None Seen #/HPF (None Seen); Mucus Urine NONE SEEN (NONE SEEN); Squamous Epithelial Cell Urine NONE SEEN #/LPF (NONE/RARE)
[2024-04-16 04:08] LABS: Testosterone 340 ng/dL (264-916)
== END 2024-04-15 08:35 | disposition home or self-care (01) ==
LOC: LAB 08:35
PROVIDERS: PCP Internal Medicine; Visit Provider Internal Medicine
DX: Z00.00 Encounter for general adult medical examination without abnormal findings (principal)
CPT/HCPCS: 36415; 80053; 80061; 81001; 84403; 85025; G0103

== ENCOUNTER 2024-05-30 09:41 | Outpatient (OUT) | payer OTHER, SELFPAY ==
--- OUTSIDE RECORDS SUMMARY | 2024-05-30 09:48 | XMS_ITS | CCD ---
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 Marilee Farnsworth Basophils/100 WBC (Bld) 0.6 % Normal 0.2-2.0 [facility] Comment on above: Performed By: #### C BC #### [facility] [address] [place] [address] Dr. aMrilee Farnsworth EO # 0.2 103/ul Normal 0.0-0.7 [facility] Comment on above: Performed By: #### C BC #### [facility] [address] [place] [address] Dr. Marilee Farnsworth Eosinophils/100 WBC (Bld) 2.5 % Normal 0.9-7.0 [facility] Comment on above: Performed By: #### C BC #### [facility] [address] [place] [address] Dr. Marilee Farnsworth Erythrocyte distribution width (RBC) [Ratio] 12.5 % Normal 11.0-15.0 [facility] Comment on above: Performed By: #### C BC #### [facility] [address] [place] [address] Dr. Marilee Farnsworth Hematocrit (Bld) [Volume fraction] 41.5 % Critically low 42.0-54.0 [facility] Comment on above: Performed By: #### C BC #### [facility] [address] [place] [address] Dr. Marilee Farnsworth Hemoglobin (Bld) [Mass/Vol] 14.3 g/dL Normal 14.0-18.0 [facility] Comment on above: Performed By: #### C BC #### [facility] [address] [place] [address] Dr. Marilee Fanrsworth IG # 0.04 10e3/ul Critically high 0.00-0.03 [facility] Comment on above: Performed By: #### C BC #### [facility] [address] [place] [address] Dr. Marilee Farnsworth IG % 0.6 % Critically high 0.0-0.5 [facility] Comment on above: Performed By: #### C BC #### [facility] [address] [place] [address] Dr. Marilee Farnsworth LYMPH # 1.8 103/ul Normal 1.2-3.8 [facility] Comment on above: Performed By: #### C BC #### [facility] [address] [place] [address] Dr. Marilee Farnsworth Lymphocytes/100 WBC (Bld) 24.6 % Normal 20.5-60.0 [facility] Comment on above: Performed By: #### C BC #### [facility] [address] [place] [address] Dr. Marilee Farnsworth MANUAL DIFF REQ NO Normal [facility] Comment on above: Performed By: #### C BC #### [facility] [address] [place] [address] Dr. Marilee Farnsworth MCH (RBC) [Entitic mass] 31.1 pg Normal 25.9-34.0 [facility] Comment on above: Performed By: #### C BC #### [facility] [address] [place] [address] Dr. Marilee Farnsworth MCHC (RBC) [Mass/Vol] 34.5 g/dL Normal 29.9-35.2 [facility] Comment on above: Performed By: #### C BC #### [facility] [address] [place] [address] Dr. Marilee Farnsworth MCV (RBC) [Entitic vol] 90.2 fL Normal 80.0-94.0 [facility] Comment on above: Performed By: #### C BC #### [facility] [address] [place] [address] Dr. Marilee Farnsworth MONO # 0.6 103/ul Normal 0.3-0.8 [facility] Comment on above: Performed By: #### C BC #### [facility] [address] [place] [address] Dr. Marilee Farnsworth Monocytes/100 WBC (Bld) 8.7 % Normal 1.7-12.0 [facility] Comment on above: Performed By: #### C BC #### [facility] [address] [place] [address] Dr. Marilee Farnsworth NEUT # 4.5 103/ul Normal 1.4-6.5 [facility] Comment on above: Performed By: #### C BC #### [facility] [address] [place] [address] Dr. Marilee Farnsworth Neutrophils/100 WBC (Bld) 63.0 % Normal 43.0-75.0 [facility] Comment on above: Performed By: #### C BC #### [facility] [address] [place] [address] Dr. Marilee Farnsworth Platelet mean volume (Bld) [Entitic vol] 9.3 fL Critically low 9.5-13.5 [facility] Comment on above: Performed By: #### C BC #### [facility] [address] [place] [address] Dr. Marilee Farnsworth PLT 225 103/ul Normal 150-450 [facility] Comment on above: Performed By: #### C BC #### [facility] [address] [place] [address] Dr. Marilee Farnsworth RBC 4.60 106/ul Critically low 4.70-6.10 [facility] Comment on above: Performed By: #### C BC #### [facility] [address] [place] [address] Dr. Marilee Farnsworth WBC 7.2 103/ul Normal 4.0-11.0 [facility] Comment on above: Performed By: #### C BC #### [facility] [address] [place] [address] Dr. Marilee Farnsworth LIPID PROFILEon 03-27-2022 CHOL-HDL RATIO NORM SEE BELOW Normal [facility] Comment on above: Result Comment: 3.3 - 4.4 LOW RISK 4.4 - 7.1 AVERAGE RISK 7.1 - 11.0 MODERATE RISK >11.0 HIGH RISK Performed By: #### T SH, CMP, LIPID #### [facility] [address] [address] [address] Marilee Farnsworth Cholesterol [Mass/Vol] 196 mg/dL Normal <=200 [facility] Comment on above: Performed By: #### T SH, CMP, LIPID #### [facility] [address] [address] [address] Marilee Farnsworth Cholesterol in HDL [Mass/Vol] 42 mg/dL Normal 40-60 [facility] Comment on above: Performed By: #### T SH, CMP, LIPID #### [facility] [address] [address] [address] Marilee Farnsworth Cholesterol in LDL [Mass/Vol] 110.0 mg/dL Normal [facility] Comment on above: Performed By: #### T SH, CMP, LIPID #### [facility] [address] [address] [address] Marilee Farnsworth Cholesterol.total/ Cholesterol in HDL [Mass ratio] 4.7 {ratio} Normal [facility] Comment on above: Performed By: #### T SH, CMP, LIPID #### [facility] [address] [address] [address] Marilee Farnsworth HDL NORMAL > or = 60 mg/dl - LOW CARDIOVASCULAR RISK <40 mg/dl - HIGH CARDIOVASCULAR RISK Normal [facility] Comment on above: Performed By: #### T SH, CMP, LIPID #### [facility] [address] [address] [address] Marilee Farnsworth LDL CALC NORMAL SEE BELOW Normal [facility] Comment on above: Result Comment: <100 mg/dl OPTIMAL 100 - 129 mg/dl NEAR OR ABOVE OPTIMAL 130 - 159 mg/dl BORDERLINE HIGH 160 - 189 mg/dl HIGH >190 mg/dl VERY HIGH Performed By: #### T SH, CMP, LIPID #### [facility] [address] [address] [address] Marilee Farnsworth Triglyceride [Mass/Vol] 220 mg/dL Critically high <=150 [facility] Comment on above: Performed By: #### T SH, CMP, LIPID #### [facility] [address] [address] [address] Marilee Farnsworth VLDL CALC 44.0 mg/dL Normal [facility] Comment on above: Performed By: #### T SH, CMP, LIPID #### [facility] [address] [address] [address] Marilee Farnsworth PROF 14(COMP METB)on 022 Albumin [Mass/Vol] 3.8 g/dL Normal 3.4-5.0 [facility] Comment on above: Performed By: #### T SH, CMP, LIPID #### [facility] [address] [address] [address] Marilee Farnsworth Albumin/Globulin [Mass ratio] 1.1 {ratio} Normal [facility] Comment on above: Performed By: #### T SH, CMP, LIPID #### [facility] [address] [place] [address] Dr. Marilee Farnsworth ALP [Catalytic activity/Vol] 49 U/L Normal 46-116 [facility] Comment on above: Performed By: #### T SH, CMP, LIPID #### [facility] [address] [place] [address] Dr. Marilee Farnsworth ALT [Catalytic activity/Vol] 53 U/L Normal 16-63 [facility] Comment on above: Performed By: #### T SH, CMP, LIPID #### [facility] [address] [place] [address] Dr. Marilee Farnsworth Anion gap [Moles/Vol] 10.0 mmol/L Normal [facility] Comment on above: Performed By: #### T SH, CMP, LIPID #### [facility] [address] [address] [address] Marilee Farnsworth AST [Catalytic activity/Vol] 23 U/L Normal 15-37 [facility] Comment on above: Performed By: #### T SH, CMP, LIPID #### [facility] [address] [address] [address] Marilee Farnsworth Bilirubin [Mass/Vol] 0.7 mg/dL Normal 0.2-1.0 [facility] Comment on above: Performed By: #### T SH, CMP, LIPID #### [facility] [address] [address] [address] Marilee Farnsworth Calcium [Mass/Vol] 9.1 mg/dL Normal 8.5-10.1 [facility] Comment on above: Performed By: #### T SH, CMP, LIPID #### [facility] [address] [address] [address] Marilee Farnsworth Chloride [Moles/Vol] 105 mmol/L Normal 98-107 [facility] Comment on above: Performed By: #### T SH, CMP, LIPID #### [facility] [address] [address] [address] Marilee Farnsworth CO2 [Moles/Vol] 30.7 mmol/L Normal 21.0-32.0 [facility] Comment on above: Performed By: #### T SH, CMP, LIPID #### [facility] [address] [place] [address] Dr. Marilee Farnsworth Creatinine [Mass/Vol] 1.07 mg/dL Normal 0.70-1.30 [facility] Comment on above: Performed By: #### T SH, CMP, LIPID #### [facility] [address] [place] [address] Dr. Marilee Farnsworth EGFR-AF BURUNDIAN >60 Normal >=60 [facility] Comment on above: Performed By: #### T SH, CMP, LIPID #### [facility] [address] [place] [address] Dr. Marilee Farnsworth EGFR-NON AF [place] >60 Normal >=60 [facility] Comment on above: Performed By: #### T SH, CMP, LIPID #### [facility] [address] [place] [address] Dr. Marilee Farnsworth Globulin (S) [Mass/Vol] 3.4 g/dL Normal [facility] Comment on above: Performed By: #### T SH, CMP, LIPID #### [facility] [address] [place] [address] Dr. Marilee Farnsworth Glucose [Mass/Vol] 105 mg/dL Normal 74-106 [facility] Comment on above: Performed By: #### T SH, CMP, LIPID #### [facility] [address] [address] [address] Marilee Farnsworth Potassium [Moles/Vol] 4.7 mmol/L Normal 3.5-5.1 [facility] Comment on above: Performed By: #### T SH, CMP, LIPID #### [facility] [address] [address] [address] Marilee Farnsworth Protein [Mass/Vol] 7.2 g/dL Normal 6.4-8.2 [facility] Comment on above: Performed By: #### T SH, CMP, LIPID #### [facility] [address] [place] [address] Dr. Marilee Farnsworth Sodium [Moles/Vol] 141 mmol/L Normal 136-145 [facility] Comment on above: Performed By: #### T SH, CMP, LIPID #### [facility] [address] [place] [address] Dr. Marilee Farnsworth Urea nitrogen [Mass/Vol] 15.0 mg/dL Normal 7.0-18.0 [facility] Comment on above: Performed By: #### T SH, CMP, LIPID #### [facility] [address] [place] [address] Dr. Marilee Farnsworth Urea nitrogen/Creatinin e [Mass ratio] 14.0 mg/mg Normal [facility] Comment on above: Performed By: #### T SH, CMP, LIPID #### [facility] [address] [place] [address] Dr. Marilee Farnsworth TSHon 03-27-2022 TSH 2.606 uIU/mL Normal 0.358-3.[address] [facility] Comment on above: Performed By: #### T SH, CMP, LIPID #### [facility] [address] [place] [address] Dr. Marilee Farnsworth Covid-19 PCR ([facility])on 05-22 SARS-CoV-2 (COVID-19) RNA NEIL+probe Ql (Unsp spec) Detected Critically abnormal NOT DETECTED [facility] Comment on above: Result Comment: This test is not yet approved or cleared by the [place] FDA. When there are no FDA-approved or cleared tests available, and other criteria are met, FDA can make tests available under an emergency access mechanism called an Emergency Use Authorization (EUA). The EUA for this test is supported by the [place] of Health and Human Service's (HHS's) declaration [...] longer be used). Performed By: #### C [facility] #### [facility] [address] [place] [address] Dr. Marilee Farnsworth Vital Signs Date Time Vital Sign Value Performing Clinician Facility 04-08-2023 14:30-0400 Body height 180.34 cm [facility] Other [place] Other 04-08-2023 14:30-0400 Body mass index (BMI) [Ratio] 34.11 kg/m2 [facility] Other [place] Other 04-08-2023 14:30-0400 Body weight 110.95 kg [facility] Other [place] Other 04-08-2023 14:30-0400 Diastolic blood pressure 93 mm[Hg] [facility] Other [place] Other 04-08-2023 14:30-0400 Respiratory rate 12 /min [facility] Other [place] Other 04-08-2023 14:30-0400 Systolic blood pressure 163 mm[Hg] [facility] Other [place] Other 10-28-2022 16:30-0500 Body height 180.34 cm [facility] Other [place] Other 10-28-2022 16:30-0500 Body mass index (BMI) [Ratio] 35.23 kg/m2 [facility] Other [place] Other 10-28-2022 16:30-0500 Body weight 114.58 kg [facility] Other [place] Other 10-28-2022 16:30-0500 Diastolic blood pressure 82 mm[Hg] [facility] Other [place] Other 10-28-2022 16:30-0500 Respiratory rate 12 /min [facility] Other [place] Other 10-28-2022 16:30-0500 Systolic blood pressure 122 mm[Hg] [facility] Other [place] Other Encounters Encounter Date Encounter Type Care Provider Facility Start: 01-21-2024 End: 01-21-2024 ambulatory CLARENCE MORTONANGELICA Not Available Start: 09-16-2023 End: 09-16-2023 ambulatory Jomar Ball Other [place] Other Start: 09-16-2023 Office outpatient vi sit 15 minutes Jomar Ball [facility] Start: 07-24-2023 End: 07-24-2023 ambulatory Jomar Ball Other [place] Other Start: 07-24-2023 Telephone encounter Jomar Ball [facility] Start: 07-23-2023 End: 07-23-2023 ambulatory Jomar Ball Other [place] Other Start: 07-23-2023 Telephone encounter Jomar Ball [facility] Start: 06-24-2023 End: 06-24-2023 ambulatory Jomar Ball Other [place] Other Start: 06-24-2023 Nursing evaluation o f patient and report Jomar Mosquera [facility] Start: 06-24-2023 Telephone encounter Jomar Mosquera [facility] Start: 06-23-2023 End: 06-23-2023 ambulatory [facility] Other [place] Other Start: 06-23-2023 Telephone encounter [facility] SANCHEZ [facility] Start: 04-08-2023 End: 04-08-2023 ambulatory Jomar Mosquera Other [place] Other Start: 04-08-2023 Encounter for genera l adult medical examination without abnormal findings Jomar Mosquera [facility] Start: 04-08-2023 Periodic preventive med est patient 40-64yrs Jomar Mosquera [facility] Start: 10-28-2022 End: 10-28-2022 ambulatory [facility] Other [place] Other Start: 10-28-2022 Office outpatient vi sit 15 minutes Jomar Mosquera [facility] Start: 04-01-2022 Encounter for genera l adult medical examination without abnormal findings DR JOMAR MOSQUERA [facility] Start: 03-27-2022 Adult health examination Jomar [facility] Other [place] Other Start: 03-27-2022 End: 03-28-[address] JOMAR MOSQUERA Facility:[facility] Start: 03-27-2022 End: 03-28-2022 Encounter for general adult medical examination without abnormal findings DR JOMAR MOSQUERA Facility:[facility] Start: 06-07-2021 End: 06-07-[address] JOMAR MOSQUERA Facility:[facility] Procedures Date Procedure Procedure Detail Performing Clinician Start: 03-27-[address] BRIGHT IN [facility] Comment on above: Performed By: #### [facility] #### [facility] [address] [place] [address] Dr. Marilee Farnsworth Start: 03-29-2019 Screening for malign ant neoplasm of colon [facility] Other Start: 12-31-2017 General examination of patient [facility] Other Start: 07-25-2016 Marital counseling Kristal [facility] Other Depression screening Antolin [facility] Other Immunizations Immunization Date Immunization Notes Care Provider Lauren reeder 06-24-2023 influenza, injectabl e, quadrivalent, preservative free [facility] Other [place] Other 07-16-2022 influenza virus vaccine, split virus (incl. purified surface antigen) [facility] Other [place] Other 07-03-2021 influenza virus vaccine, split virus (incl. purified surface antigen) [facility] Other [place] Other 07-13-2020 influenza virus vaccine, split virus (incl. purified surface antigen) [facility] Other [place] Other 07-05-2019 influenza virus vaccine, split virus (incl. purified surface antigen) [facility] Other [place] Other 07-20-2017 influenza virus vaccine, split virus (incl. purified surface antigen) [facility] Other [place] Other Payers Date Payer Category Payer Unknown [id number] 1967 Unknown [id number] 1967 Unknown [id number] 1959 Unknown [id number] Social History Date Type Detail Facility Unknown if ever smoked [place] Other Sex Assigned At Sex Assigned At Bir th [place] Other Evaluation note 09-16-2023 Note Date & Type Note Facility 09-16-2023 Evaluation note Encounter Date Diagnosis Assessment Notes Aug, Acute bronchitis due to other specified organisms (ICD-10 - J20.8) Instructed to use Robitussin or Mucinex for cough, saline or Flonase NS for congestion, Tylenol for pain and fever. Aug, Primary hypertension (ICD-10 - I10) Aviod decongestants as they would aggravate his underlying HTN [place] Other Evaluation note 07-23-2023 Note Date & Type Note Facility 07-23-2023 Evaluation note Encounter Date Diagnosis Assessment Notes Jul, Essential hypertension (ICD-10 - I10) Jul, Anemia, unspecified type (ICD-10 - D64.9) [place] Other Evaluation note 06-24-2023 Note Date & Type Note Facility 06-24-2023 Evaluation note Encounter Date Diagnosis Assessment Notes Jun, Primary hypertension (ICD-10 - I10) [place] Other Evaluation note 06-23-2023 Note Date & Type Note Facility 06-23-2023 Evaluation note Encounter Date Diagnosis Assessment Notes Jun, Primary hypertension (ICD-10 - I10) [place] Other Evaluation note 04-08-2023 Note Date & [...] use, the patient reduces the risk for AK, CVA, HTN, cardiac dysrhythmias and sudden cardiac [...] They may safely use Tylenol as needed. [place] Other Evaluation note 10-28-2022 Note Date & [...] use, the patient reduces the risk for AK, CVA, HTN, cardiac dysrhythmias and sudden cardiac [...] They may safely use Tylenol as needed. [place] Other Evaluation note Note Date & Type Note Facility Evaluation note No Information [facility] Other History general Narrative - Reported Note [...] APPENDECTOMY 2014 Hospitalization History SEE SURGICAL HX [place] Other Summary Purpose Family History No Family History Records FoundNo Family History Records Found Advance Directives No Advanced Directives Records FoundNo Advanced Directives Records Found Additional Source Comments (unrecognized sect ion and content) No Status Records FoundNo Status Records Found INFORMATION SOURCE (unrecogn ized section and content) DATE CREATED AUTHOR 04/25/2022 [facility] DATE CREATED AUTHOR AUTHOR'S ORGANIZ ATION 01/23/2024 [facility] EPIC REASON FOR VISIT (unrecogniz ed section and content) 6 month Follow upwellnessEle vated BPFLU ShotBP medicationRepeat LabsLab [phone] possible sinus infection FOR RECORDS PERTAINING TO [...] BE BASED ON THE PRIMARY CLINICAL RECORDS. [employer] provides no warranty or guarantee of the accuracy or completeness of information in this document.
[2024-05-30 10:27] LABS: Alanine Aminotransferase 52 U/L (16-63); Albumin Globulin Ratio 1.2; Albumin Level 3.6 g/dL (3.4-5.0); Alkaline Phosphatase 55 U/L (46-116); Aspartate Amino Transferase 11 U/L (15-37); Bilirubin Direct 0.1 mg/dL (0.0-0.2); Bilirubin Total 0.5 mg/dL (0.2-1.0); Globulin 3.1 g/dL; Total Protein 6.7 g/dL (6.4-8.2)
== END 2024-05-30 09:42 | disposition home or self-care (01) ==
LOC: LAB 09:41
PROVIDERS: PCP Internal Medicine; Visit Provider Internal Medicine
DX: Z79.899 Other long term (current) drug therapy (principal)
CPT/HCPCS: 36415; 80076

== ENCOUNTER 2024-07-14 08:57 | Outpatient (OUT) | payer OTHER, SELFPAY ==
[2024-07-14 09:09] LABS: Basophils Percent Auto 0.4 % (0.2-2.0); Eosinophils Absolute Auto 0.1 10^3/uL (0.0-0.7); Eosinophils Percent Auto 1.9 % (0.9-7.0); Hematocrit 40.2 % (42.0-54.0); Hemoglobin 14.2 g/dL (14.0-18.0); Immature Granulocytes Abs Auto 0.02 10^3/uL (0.00-0.03); Immature Granulocytes Pct Auto 0.3 % (0.0-0.5); Lymphocytes Absolute Auto 1.6 10^3/uL (1.2-3.8); Lymphocytes Percent Auto 23.6 % (20.5-60.0); Mean Corpuscular HGB Conc 35.3 g/dL (29.9-35.2); Mean Corpuscular Hemoglobin 31.6 pg (25.9-34.0); Mean Corpuscular Volume 89.5 fL (80.0-94.0); Monocytes Absolute Auto 0.7 10^3/uL (0.3-0.8); Monocytes Percent Auto 10.1 % (1.7-12.0); Neutrophils Absolute Auto 4.4 10^3/uL (1.4-6.5); Neutrophils Percent Auto 63.7 % (43.0-75.0); Platelet Count 201 10^3/uL (150-450); Red Blood Count 4.49 10^6/uL (4.70-6.10); Red Cell Distribution Width 12.5 % (11.0-15.0); White Blood Count 6.9 10^3/uL (4.0-11.0)
--- OUTSIDE RECORDS SUMMARY | 2024-07-14 09:18 | XMS_ITS | CCD ---
Author Organization [facility] Care Team Providers Care Marriage Performer Name Role Phone KVNG, DR WILSON Attending [...] physicia Propensity to adverse reactions 5 Comment:Done [facility] Other Medications Current Medications Medication Drug Class(es) [...] # 0.0 103/ul Normal 0.0-0.1 [facility] Comment on above: Performed By: #### C BC #### [facility] [address] [address] [address] Marilee Farnsworth Basophils/100 WBC (Bld) 0.6 % Normal 0.2-2.0 [facility] Comment on above: Performed By: #### C BC #### [facility] [address] [place] [address] Dr. Marilee Farnsworth EO # 0.2 103/ul Normal 0.0-0.7 [facility] Comment on above: Performed By: #### C BC #### [facility] [address] [place] [address] Dr. Marilee Farnsworth Eosinophils/100 WBC (Bld) 2.5 % Normal 0.9-7.0 [facility] Comment on above: Performed By: #### C BC #### [facility] [address] [place] [address] Dr. Marilee Farnsworth Erythrocyte distribution width (RBC) [Ratio] 12.5 % Normal 11.0-15.0 [facility] Comment on above: Performed By: #### C BC #### [facility] [address] [place] [address] Dr. Marilee Farnsworth Hematocrit (Bld) [Volume fraction] 41.5 % Critically low 42.0-54.0 [facility] Comment on above: Performed By: #### C BC #### [facility] [address] [place] [address] Dr. Marilee Farnsworth Hemoglobin (Bld) [Mass/Vol] 14.3 g/dL Normal 14.0-18.0 [facility] Comment on above: Performed By: #### C BC #### [facility] [address] [place] [address] Dr. Marilee Farnsworth IG # 0.04 10e3/ul Critically high 0.00-0.03 [facility] Comment on above: Performed By: #### C BC #### [facility] [address] [place] [address] Dr. Marilee Farnsworth IG % 0.6 % Critically high 0.0-0.5 [facility] Comment on above: Performed By: #### C BC #### [facility] [address] [place] [address] Dr. Marilee Farnswotrh LYMPH # 1.8 103/ul Normal 1.2-3.8 [facility] Comment on above: Performed By: #### C BC #### [facility] [address] [place] [address] Dr. Marilee Farnsworth Lymphocytes/100 WBC (Bld) 24.6 % Normal 20.5-60.0 [facility] Comment on above: Performed By: #### C BC #### [facility] [address] [place] [address] Dr. Marilee Farnsworth MANUAL DIFF REQ NO Normal [facility] Comment on above: Performed By: #### C BC #### [facility] [address] [place] [address] Dr. Marilee Farnsworth MCH (RBC) [Entitic mass] 31.1 pg Normal 25.9-34.0 [facility] Comment on above: Performed By: #### C BC #### [facility] [address] [place] [address] Dr. Marilee Farnsworth MCHC (RBC) [Mass/Vol] 34.5 g/dL Normal 29.9-35.2 [facility] Comment on above: Performed By: #### C BC #### [facility] [address] [place] [address] Dr. Marilee Farnsworth MCV (RBC) [Entitic vol] 90.2 fL Normal 80.0-94.0 [facility] Comment on above: Performed By: #### C BC #### [facility] [address] [place] [address] Dr. Marilee Farnsworth MONO # 0.6 103/ul Normal 0.3-0.8 [facility] Comment on above: Performed By: #### C BC #### [facility] [address] [place] [address] Dr. Marilee Farnsworth Monocytes/100 WBC (Bld) 8.7 % Normal 1.7-12.0 [facility] Comment on above: Performed By: #### C BC #### [facility] [address] [place] [address] Dr. Marilee Farnsworth NEUT # 4.5 103/ul Normal 1.4-6.5 [facility] Comment on above: Performed By: #### C BC #### [facility] [address] [place] [address] Dr. Marilee Farnsworth Neutrophils/100 WBC (Bld) 63.0 % Normal 43.0-75.0 [facility] Comment on above: Performed By: #### C BC #### [facility] [address] [place] [address] Dr. Marilee Farnsworth Platelet mean volume (Bld) [Entitic vol] 9.3 fL Critically low 9.5-13.5 [facility] Comment on above: Performed By: #### C BC #### [facility] [address] [place] [address] Dr. Marilee Farnsworth PLT 225 103/ul Normal 150-450 [facility] Comment on above: Performed By: #### C BC #### [facility] [address] [place] [address] Dr. Marilee Farnsworth RBC 4.60 106/ul Critically low 4.70-6.10 [facility] Comment on above: Performed By: #### C BC #### [facility] [address] [place] [address] Dr. Marilee Farnsworth WBC 7.2 103/ul Normal 4.0-11.0 [facility] Comment on above: Performed By: #### C BC #### [facility] [address] [place] [address] Dr. Marilee Farnsworth LIPID PROFILEon 03-27-2022 CHOL-HDL RATIO NORM SEE BELOW Normal [facility] Comment on above: Result Comment: 3.3 - 4.4 LOW RISK 4.4 - 7.1 AVERAGE RISK 7.1 - 11.0 MODERATE RISK >11.0 HIGH RISK Performed By: #### T SH, CMP, LIPID #### [facility] [address] [address] [address] Marilee Farnsworth Cholesterol [Mass/Vol] 196 mg/dL Normal <=200 [facility] Comment on above: Performed By: #### T SH, CMP, LIPID #### [facility] [address] [address] [address] Marilee Farnsworth Cholesterol in HDL [Mass/Vol] 42 mg/dL Normal 40-60 [facility] Comment on above: Performed By: #### T SH, CMP, LIPID #### [facility] [address] [address] [address] Marilee Farnsworth Cholesterol in LDL [Mass/Vol] 110.0 mg/dL Normal [facility] Comment on above: Performed By: #### T SH, CMP, LIPID #### [facility] [address] [address] [address] Marilee Farnsworth Cholesterol.total/ Cholesterol in HDL [Mass ratio] 4.7 {ratio} Normal [facility] Comment on above: Performed By: #### T SH, CMP, LIPID #### [facility] [address] [address] [address] Marilee Farnsworth HDL NORMAL > or = 60 mg/dl - LOW CARDIOVASCULAR RISK <40 mg/dl - HIGH CARDIOVASCULAR RISK Normal [facility] Comment on above: Performed By: #### T SH, CMP, LIPID #### [facility] [address] [address] [address] Marilee Farnsworth LDL CALC NORMAL SEE BELOW Normal [facility] Comment on above: Result Comment: <100 mg/dl OPTIMAL 100 - 129 mg/dl NEAR OR ABOVE OPTIMAL 130 - 159 mg/dl BORDERLINE HIGH 160 - 189 mg/dl HIGH >190 mg/dl VERY HIGH Performed By: #### T SH, CMP, LIPID #### [facility] [address] [address] [address] Marilee Farnsworth Triglyceride [Mass/Vol] 220 mg/dL Critically high <=150 [facility] Comment on above: Performed By: #### T SH, CMP, LIPID #### [facility] [address] [address] [address] Marilee Farnsworth VLDL CALC 44.0 mg/dL Normal [facility] Comment on above: Performed By: #### T SH, CMP, LIPID #### [facility] [address] [address] [address] Marilee Farnsworth PROF 14(COMP METB)on 022 Albumin [Mass/Vol] 3.8 g/dL Normal 3.4-5.0 [facility] Comment on above: Performed By: #### T SH, CMP, LIPID #### [facility] [address] [address] [address] Marilee Farnsworth Albumin/Globulin [Mass ratio] 1.1 {ratio} Normal [facility] Comment on above: Performed By: #### T SH, CMP, LIPID #### [facility] [address] [place] [address] Dr. Marilee Farnsworth ALP [Catalytic activity/Vol] 49 U/L Normal 46-116 [facility] Comment on above: Performed By: #### T SH, CMP, LIPID #### [facility] [address] [place] [address] Dr. Marilee Farnsworth ALT [Catalytic activity/Vol] 53 U/L Normal 16-63 [facility] Comment on above: Performed By: #### T SH, CMP, LIPID #### [facility] [address] [place] [address] Dr. Marilee Farnsworth Anion gap [Moles/Vol] 10.0 mmol/L Normal [facility] Comment on above: Performed By: #### T SH, CMP, LIPID #### [facility] [address] [address] [address] Marilee Farnsworth AST [Catalytic activity/Vol] 23 U/L Normal 15-37 [facility] Comment on above: Performed By: #### T SH, CMP, LIPID #### [facility] [address] [address] [address] Marilee Farnsworth Bilirubin [Mass/Vol] 0.7 mg/dL Normal 0.2-1.0 [facility] Comment on above: Performed By: #### T SH, CMP, LIPID #### [facility] [address] [address] [address] Marilee Farnsworth Calcium [Mass/Vol] 9.1 mg/dL Normal 8.5-10.1 [facility] Comment on above: Performed By: #### T SH, CMP, LIPID #### [facility] [address] [address] [address] Marilee Farnsworth Chloride [Moles/Vol] 105 mmol/L Normal 98-107 [facility] Comment on above: Performed By: #### T SH, CMP, LIPID #### [facility] [address] [address] [address] Marilee Farnsworth CO2 [Moles/Vol] 30.7 mmol/L Normal 21.0-32.0 [facility] Comment on above: Performed By: #### T SH, CMP, LIPID #### [facility] [address] [place] [address] Dr. Marilee Farnsworth Creatinine [Mass/Vol] 1.07 mg/dL Normal 0.70-1.30 [facility] Comment on above: Performed By: #### T SH, CMP, LIPID #### [facility] [address] [place] [address] Dr. Marilee Farnsworth EGFR-AF HONG KONGER >60 Normal >=60 [facility] Comment on above: Performed By: #### T SH, CMP, LIPID #### [facility] [address] [place] [address] Dr. Marilee Farnsworth EGFR-NON AF HONG KONGER >60 Normal >=60 [facility] Comment on above: Performed By: #### T SH, CMP, LIPID #### [facility] [address] [place] [address] Dr. Marilee Farnsworth Globulin (S) [Mass/Vol] 3.4 g/dL Normal [facility] Comment on above: Performed By: #### T SH, CMP, LIPID #### [facility] [address] [place] [address] Dr. Marilee Farnsworth Glucose [Mass/Vol] 105 mg/dL Normal 74-106 [facility] Comment on above: Performed By: #### T SH, CMP, LIPID #### [facility] [address] [address] [address] Marilee Farnsworth Potassium [Moles/Vol] 4.7 mmol/L Normal 3.5-5.1 [facility] Comment on above: Performed By: #### T SH, CMP, LIPID #### [facility] [address] [address] [address] Marilee Farnsworth Protein [Mass/Vol] 7.2 g/dL Normal 6.4-8.2 [facility] Comment on above: Performed By: #### T SH, CMP, LIPID #### [facility] [address] [place] [address] Dr. Marilee Farnsworth Sodium [Moles/Vol] 141 mmol/L Normal 136-145 [facility] Comment on above: Performed By: #### T SH, CMP, LIPID #### [facility] [address] [place] [address] Dr. Marilee Farnsworth Urea nitrogen [Mass/Vol] 15.0 mg/dL Normal 7.0-18.0 [facility] Comment on above: Performed By: #### T SH, CMP, LIPID #### [facility] [address] [place] [address] Dr. Marilee Farnsworth Urea nitrogen/Creatinin e [Mass ratio] 14.0 mg/mg Normal [facility] Comment on above: Performed By: #### T SH, CMP, LIPID #### [facility] [address] [place] [address] Dr. Marilee Farnsworth TSHon 03-27-2022 TSH 2.606 uIU/mL Normal 0.358-3.740 [facility] Comment on above: Performed By: #### T SH, CMP, LIPID #### [facility] [address] [place] [address] Dr. Marilee Farnsworth [facility] SARS-CoV-2 (COVID-19) RNA NEIL+probe Ql (Unsp spec) Detected Critically abnormal NOT DETECTED [facility] Comment on above: Result Comment: This test is not yet approved or cleared by the [place] FDA. When there are no FDA-approved or cleared tests available, and other criteria are met, FDA can make tests available under an emergency access mechanism called an Emergency Use Authorization (EUA). The EUA for this test is supported by the [place] of Health and Human Service's (HHS's) declaration [...] longer be used). Performed By: #### C [facility] #### [facility] [address] [place] [address] Dr. Marilee Farnsworth Vital Signs Date Time Vital Sign Value Performing Clinician Facility 04-08-2023 14:30-0400 Body height 180.34 cm Jomar Correlor Other [facility] Other 04-08-2023 14:30-0400 Body mass index (BMI) [Ratio] 34.11 kg/m2 Jomar Correlor Other [facility] Other 04-08-2023 14:30-0400 Body weight 110.95 kg Jomar Ball Other [facility] Other 04-08-2023 14:30-0400 Diastolic blood pressure 93 mm[Hg] Jomar Ball Other [facility] Other 04-08-2023 14:30-0400 Respiratory rate 12 /min Jomar Correlor Other [facility] Other 04-08-2023 14:30-0400 Systolic blood pressure 163 mm[Hg] Jomar Ball Other [facility] Other 10-28-2022 16:30-0500 Body height 180.34 cm Jomar Correlor Other [facility] Other 10-28-2022 16:30-0500 Body mass index (BMI) [Ratio] 35.23 kg/m2 Jomar Ball Other [facility] Other 10-28-2022 16:30-0500 Body weight 114.58 kg Jomar Ball Other [facility] Other 10-28-2022 16:30-0500 Diastolic blood pressure 82 mm[Hg] Jomar Ball Other [facility] Other 10-28-2022 16:30-0500 Respiratory rate 12 /min Jomar Ball Other [facility] Other 10-28-2022 16:30-0500 Systolic blood pressure 122 mm[Hg] Jomar Ball Other [facility] Other Encounters Encounter Date Encounter Type Care Provider Facility Start: 01-21-2024 End: 01-21-2024 ambulatory CLARENCE MORTONANGELICA Not Available Start: 09-16-2023 End: 09-16-2023 ambulatory Jomar Ball Other [facility] Other Start: 09-16-2023 Office outpatient vi sit 15 minutes Jomar Ball [facility] Start: 07-24-2023 End: 07-24-2023 ambulatory Jomar Ball Other [facility] Other Start: 07-24-2023 Telephone encounter Jomar Ball [facility] Start: 07-23-2023 End: 07-23-2023 ambulatory Jomar Ball Other [facility] Other Start: 07-23-2023 Telephone encounter Jomar Ball [facility] Start: 06-24-2023 End: 06-24-2023 ambulatory Jomar Ball Other [facility] Other Start: 06-24-2023 Nursing evaluation o f patient and report Jomar Mosquera [facility] Start: 06-24-2023 Telephone encounter Jomar Mosquera [facility] Start: 06-23-2023 End: 06-23-2023 ambulatory Jomar Kvng Other [facility] Other Start: 06-23-2023 Telephone encounter Jomar SANCHEZ [facility] Start: 04-08-2023 End: 04-08-2023 ambulatory Jomar Mosquera Other [facility] Other Start: 04-08-2023 Encounter for genera l adult medical examination without abnormal findings Jomra Mosquera [facility] Start: 04-08-2023 Periodic preventive med est patient 40-64yrs Jomar Mosquera [facility] Start: 10-28-2022 End: 10-28-2022 ambulatory Jomar Kvng Other [facility] Other Start: 10-28-2022 Office outpatient vi sit 15 minutes Jomar Mosquera [facility] Start: 04-01-2022 Encounter for genera l adult medical examination without abnormal findings DR JOMAR MOSQUERA [facility] Start: 03-27-2022 Adult health examination Jomar Kvng Other [facility] Other Start: 03-27-2022 End: 03-28-[address] JOMAR MOSQUERA Facility:[facility] Start: 03-27-2022 End: 03-28-2022 Encounter for general adult medical examination without abnormal findings DR JOMAR MOSQUERA Facility:[facility] Start: 06-07-2021 End: 06-07-[address] JOMAR MOSQUERA Facility:[facility] Procedures Date Procedure Procedure Detail Performing Clinician Start: 03-27-[address] BRIGHT IN [facility] Comment on above: Performed By: #### P [facility] #### [facility] [address] [place] [address] Dr. Marilee Farnsworth Start: 03-29-2019 Screening for malign ant neoplasm of colon Jomar Mosquera Other Start: 12-31-2017 General examination of patient Jomar Mosquera Other Start: 07-25-2016 Marital counseling Kristal Mosquera Other Depression screening Antolin Mosquera Other Immunizations Immunization Date Immunization Notes Care Provider Lauren reeder 06-24-2023 influenza, injectabl e, quadrivalent, preservative free Jomar Mosquera Other [facility] Other 07-16-2022 influenza virus vaccine, split virus (incl. purified surface antigen) Jomar Mosquera Other [facility] Other 07-03-2021 influenza virus vaccine, split virus (incl. purified surface antigen) Jomar Mosquera Other [facility] Other 07-13-2020 influenza virus vaccine, split virus (incl. purified surface antigen) Jomar Mosquera Other [facility] Other 07-05-2019 influenza virus vaccine, split virus (incl. purified surface antigen) Jomar Mosquera Other [facility] Other 07-20-2017 influenza virus vaccine, split virus (incl. purified surface antigen) Jomar Mosquera Other [facility] Other Payers Date Payer Category Payer Unknown [id number] 1965 Unknown [id number] 1965 Unknown [id number] 1959 Unknown [id number] Social History Date Type Detail Facility Unknown if ever smoked [facility] Other Sex Assigned At Sex Assigned At Bir th [facility] Other Evaluation note 09-16-2023 Note Date & Type Note Facility 09-16-2023 Evaluation note Encounter Date Diagnosis Assessment Notes Aug, Acute bronchitis due to other specified organisms (ICD-10 - J20.8) Instructed to use Robitussin or Mucinex for cough, saline or Flonase NS for congestion, Tylenol for pain and fever. Aug, Primary hypertension (ICD-10 - I10) Aviod decongestants as they would aggravate his underlying HTN [facility] Other Evaluation note 07-23-2023 Note Date & Type Note Facility 07-23-2023 Evaluation note Encounter Date Diagnosis Assessment Notes Jul, Essential hypertension (ICD-10 - I10) Jul, Anemia, unspecified type (ICD-10 - D64.9) [facility] Other Evaluation note 06-24-2023 Note Date & Type Note Facility 06-24-2023 Evaluation note Encounter Date Diagnosis Assessment Notes Jun, Primary hypertension (ICD-10 - I10) [facility] Other Evaluation note 06-23-2023 Note Date & Type Note Facility 06-23-2023 Evaluation note Encounter Date Diagnosis Assessment Notes Jun, Primary hypertension (ICD-10 - I10) [facility] Other Evaluation note 04-08-2023 Note Date & [...] use, the patient reduces the risk for PR, CVA, HTN, cardiac dysrhythmias and sudden cardiac [...] They may safely use Tylenol as needed. [facility] Other Evaluation note 10-28-2022 Note Date & [...] use, the patient reduces the risk for PR, CVA, HTN, cardiac dysrhythmias and sudden cardiac [...] They may safely use Tylenol as needed. [facility] Other Evaluation note Note Date & Type Note Facility Evaluation note No Information [facility] Other History general Narrative - Reported Note [...] APPENDECTOMY 2014 Hospitalization History SEE SURGICAL HX [facility] Other Summary Purpose Family History No Family History Records FoundNo Family History Records Found Advance Directives No Advanced Directives Records FoundNo Advanced Directives Records Found Additional Source Comments (unrecognized sect ion and content) No Status Records FoundNo Status Records Found INFORMATION SOURCE (unrecogn ized section and content) DATE CREATED AUTHOR 04/25/2022 [facility] DATE CREATED AUTHOR AUTHOR'S ORGANIZ ATION 01/23/2024 [facility] EPIC REASON FOR VISIT (unrecogniz ed section and content) 6 month Follow upwellnessEle vated BPFLU ShotBP medicationRepeat LabsLab [id number] possible sinus infection FOR RECORDS PERTAINING TO [...] BE BASED ON THE PRIMARY CLINICAL RECORDS. [employer] provides no warranty or guarantee of the accuracy or completeness of information in this document.
[2024-07-15 04:08] LABS: Vitamin B12 1002 pg/mL (232-1245)
== END 2024-07-14 08:58 | disposition home or self-care (01) ==
LOC: LAB 08:58
PROVIDERS: PCP Internal Medicine; Visit Provider Internal Medicine
DX: D64.9 Anemia, unspecified (principal); R53.83 Other fatigue
CPT/HCPCS: 36415; 82607; 82728; 83540; 83550; 85025

== ENCOUNTER 2024-11-17 14:01 | Outpatient (RCR) | payer OTHER, SELFPAY | END 2024-11-18 13:15 | disposition home or self-care (01) | LOC: PT 14:01 | PROVIDERS: PCP Internal Medicine; Visit Provider Internal Medicine | DX: S16.1XXD Strain of muscle, fascia and tendon at neck level, subsequent encounter (principal); S39.012D Strain of muscle, fascia and tendon of lower back, subsequent encounter; V49.9XXD Car occupant (driver) (passenger) injured in unspecified traffic accident, subsequent encounter; M54.2 Cervicalgia; Q76.5 Cervical rib | CPT/HCPCS: 97110; 97163 ==

== ENCOUNTER 2024-11-22 13:20 | Outpatient (RCR) | payer BC, SELFPAY | END 2025-02-09 07:43 | disposition home or self-care (01) | LOC: PT 13:20 | PROVIDERS: PCP Internal Medicine; Visit Provider Internal Medicine | DX: M54.50 Low back pain, unspecified (principal); M54.2 Cervicalgia; Q00-Q99 Congenital malformations, deformations and chromosomal abnormalities | CPT/HCPCS: 97010; 97012; 97014; 97110; 97140 ==

== ENCOUNTER 2025-03-21 12:34 | Outpatient (OUT) | payer BC, SELFPAY ==
--- OUTSIDE RECORDS SUMMARY | 2025-03-21 12:36 | XMS_ITS | Clinical Summary ---
Author Organization [facility] Address [address] [place], [place] [id number] Care Team Providers Care Travel Attendants Name Role Phone Unavailable Primary Care Provider Unavailabl e Allergies No known active allergies Medications ibuprofen (MOTRIN) 600 mg tablet Take 1 tablet by mouth every 6 hours as needed for pain. 20 tablet 09/25/2024 Active cyclobenzaprine (FLEXERIL) 10 mg tablet Take 1 tablet by mouth every 8 hours as needed. 15 tablet 09/25/2024 Active Social History Tobacco Use Types Packs/Day Years Used Date Smoking Tobacco: Never Assessed Area Deprivation Index Answer Date James rded National Score (1-100), lower number is lower ri sk 78 09/26/2024 State Score (1-10), lower number is lower risk 6 09/26/2024 Data from: https://www.neighborhoodatlas.medicine.[facility].edu/. Last address used for calculation [address] [place] [address] 09/26/2024 Sex and Gender Information Value Date Recorded Sex Assigned at Not on file Legal Sex Male 7:49 PM EST Gender Identity Not on file Sexual Orientation Not on file Last Filed Vital Signs Vital Sign Reading Time Taken Comments Blood Pressure 144/70 09/25/2024 10:09 PM EST Pulse 69 09/25/2024 8:31 PM EST Temperature 36.8 C (98.2 F) 09/25/2024 8:31 PM EST Respiratory Rate 18 09/25/2024 10:09 PM EST Oxygen Saturation 99% 09/25/2024 8:46 PM EST Inhaled Oxygen Concentration - - Weight 108.9 kg (240 lb) 09/25/2024 8:31 PM EST Height - - Body Mass Index - - Plan of Treatment Not on file Insurance [employer] C[employer]
--- NOTE | 2025-03-21 12:38 | MR_ITS ---
The [address] [address] Patient Name: SOFIA CHARLES MRN: [id number] date: 1965 Sex: M Assigned Patient Location: MRI Current Patient Location: MRI Accession/Order Number: [id number] Exam Date: 03/21/2025 15:37 Report Date: 03/21/2025 15:49 At the request of: KATIE MOSQUERA DO Procedure: MR lumbar spine wo con MRI lumbar spine performed without contrast INDICATION: Low back pain with radiculopathy COMPARISON: CT lumbar spine 02/13/2024 FINDINGS: There is straightening of the normal lumbar lordosis with slight reversal. Degenerative marrow changes L4-5 and L5-S1. Severe intervertebral space narrowing at L5-S1. There is moderate facet arthropathy L4-S1. The conus medullaris terminates normally at L1-L2. T11-L3: No significant disc disease, disc protrusion, central canal or neural from narrowing identified. L3-4: Broad-based disc bulge with endplate osteophytosis extending both foraminal zones (right. Bilateral facet arthropathy. Mild canal. [id number] right neural from narrowing and moderate to severe left neural from narrowing. L4-5: Loss of disc signal are noted. There is a moderate to large disc extrusion noted notably left subarticular zone this measured 1.9 x 0.9 x 1.4 cm In size and causes severe canal narrowing and effacement left subarticular zone. Bilateral facet arthropathy, moderate severe. There is posterior displacement of the nerve roots of cauda equina at this level. L5-S1: Severe intervertebral space narrowing with diffuse endplate osteophytosis and minimal broad-based bulge. Moderate facet arthropathy. Moderate bilateral neural foraminal narrowing. Canal is patent. Minimal synovial cyst on the right noted 3 to 4 mm in size without definite mass effect. MR/MR lumbar spine wo con IMPRESSION: Severe central canal stenosis at L4-5 caused by a moderate to large disc extrusion measuring up to 1.9 cm in greatest transverse dimension. This displaces the cauda equina nerve roots at this level causing severe canal narrowing. Findings were conveyed to Dr Mosquera's nurse over the telephone 1548 hours on 03/21/2025 Impression dictated by: Steve Yu M.D. 03/21/2025 3:49 PM Dictation Location: [place] [address] Electronically authenticated by: [id number] Y Date: 03/21/2025 15:49
== END 2025-03-21 12:35 | disposition home or self-care (01) ==
LOC: MRI 12:34
PROVIDERS: PCP Internal Medicine; Visit Provider Internal Medicine
DX: M79.604 Pain in right leg (principal); M54.50 Low back pain, unspecified; R20.8 Other disturbances of skin sensation; V89.2XXD Person injured in unspecified motor-vehicle accident, traffic, subsequent encounter; M48.062 Spinal stenosis, lumbar region with neurogenic claudication
CPT/HCPCS: 72148

== ENCOUNTER 2025-04-21 07:52 | Outpatient (OUT) | payer BC, SELFPAY ==
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
[2025-04-21 08:20] LABS: Hematocrit 39.0 % (42.0-54.0); Hemoglobin 13.7 g/dL (14.0-18.0); Immature Granulocytes Abs Auto 0.01 10^3/uL (0.00-0.03); Immature Granulocytes Pct Auto 0.2 % (0.0-0.5); Lymphocytes Absolute Auto 1.9 10^3/uL (1.2-3.8); Mean Corpuscular HGB Conc 35.1 g/dL (29.9-35.2); Mean Corpuscular Hemoglobin 31.1 pg (25.9-34.0); Mean Corpuscular Volume 88.6 fL (80.0-94.0); Platelet Count 192 10^3/uL (150-450); Red Blood Count 4.40 10^6/uL (4.70-6.10); White Blood Count 5.8 10^3/uL (4.0-11.0)
[2025-04-21 08:49] LABS: Alanine Aminotransferase 55 U/L (16-63); Albumin Level 3.8 g/dL (3.4-5.0); Alkaline Phosphatase 52 U/L (46-116); Anion Gap 11.7; Aspartate Amino Transferase 24 U/L (15-37); Blood Urea Nitrogen 23.0 mg/dL (7.0-18.0); Calcium 8.9 mg/dL (8.5-10.1); Carbon Dioxide 28.8 mmol/L (21.0-32.0); Chloride 105 mmol/L (98-107); Estimated GFR (African America >60 (>=60 mL/min/1.73m^2); Estimated GFR (Non-African Ame >60 (>=60 mL/min/1.73m^2); Glucose 121 mg/dL (74-106); Potassium 3.5 mmol/L (3.5-5.1); Sodium 142 mmol/L (136-145); Total Protein 6.9 g/dL (6.4-8.2)
[2025-04-21 08:50] LABS: Albumin Globulin Ratio 1.2; Cholesterol 199 mg/dL (<=200); Globulin 3.1 g/dL; HDL Cholesterol 41 mg/dL (40-60); Thyroid Stimulating Hormone 2.361 uIU/mL (0.358-3.740); Triglycerides 147 mg/dL (<=150); VLDL CHOLESTEROL 29.4 mg/dL
== END 2025-04-21 07:53 | disposition home or self-care (01) ==
LOC: LAB 07:53
PROVIDERS: PCP Internal Medicine; Visit Provider Internal Medicine
DX: Z00.00 Encounter for general adult medical examination without abnormal findings (principal); Z12.5 Encounter for screening for malignant neoplasm of prostate; R53.83 Other fatigue
CPT/HCPCS: 36415; 80053; 80061; 84403; 84443; 85025; G0103